=== PATIENT | male | born 1955 | race Caucasian/White ===

== ENCOUNTER 2020-03-30 08:05 | Outpatient (REF) | payer BC, SELFPAY | END 2020-03-30 08:06 | disposition home or self-care (01) | LOC: HO.BBR 08:05 | PROVIDERS: PCP Nurse Practitioner Family; Visit Provider Internal Medicine | DX: Z13.89 Encounter for screening for other disorder (principal) ==

== ENCOUNTER 2020-03-30 08:34 | Outpatient (REF) | payer SELFPAY ==
[2020-03-30 09:56] LABS: Cholesterol 169 mg/dL
[2020-03-30 10:16] LABS: SARS COV2 IgG Negative (Negative)
== END 2020-03-30 08:35 | disposition home or self-care (01) ==
LOC: HO.LNC 08:34
PROVIDERS: Visit Provider Pathology Anatomic Pathology & Clinical Pathology
DX: Z20.828 Contact with and (suspected) exposure to other viral communicable diseases (principal)
CPT/HCPCS: 82465; 86769

== ENCOUNTER 2020-05-17 07:54 | Outpatient (REF) | payer BC, SELFPAY ==
--- NOTE | 2020-05-17 | US_ITS ---
EXAMINATION: US ABDOMEN COMPLETE CLINICAL INFORMATION: Hereditary hemochromatosis. COMPARISON: Ultrasound abdomen 01/28/2018. X-ray negative soft tissue 03/02/2014. Ultrasound abdomen 02/02/2013. TECHNIQUE: Real-time imaging of the abdominal viscera. Exam is limited due to patient body habitus. FINDINGS: PANCREAS: Normal. ABDOMINAL AORTA: The proximal, mid, and distal segments are normal in caliber. INFERIOR VENA CAVA: Visualized portions are normal. LIVER: . The liver is normal in size. The liver contour is normal. Liver echotexture is slightly increased. No focal hepatic lesion. There is no intrahepatic biliary duct dilatation seen. GALLBLADDER: Normal. The gallbladder is physiologically distended without evidence of stones, sludge, polyps, wall thickening or pericholecystic fluid. COMMON BILE DUCT: Normal in caliber measuring 0.3 cm in diameter. RIGHT KIDNEY: Normal. No hydronephrosis. No renal calculi or focal parenchymal lesions. The kidney measures 11.1 cm in maximum dimension. LEFT KIDNEY: Normal. No hydronephrosis. No renal calculi or focal parenchymal lesions. The kidney measures 11.5 cm in maximum dimension. SPLEEN: Normal. The spleen measures 11.4 cm in maximum dimension. FREE FLUID: None. US/US abdomen complete IMPRESSION: Limited exam. Slightly echogenic liver. No focal liver lesion or evidence of cirrhosis seen.
[2020-05-17 09:31] LABS: Alanine Aminotransferase 27 U/L (0-40); Albumin Level 4.8 g/dL (3.5-5.0); Alkaline Phosphatase 81 U/L (39-117); Aspartate Amino Transferase 21 U/L (5-37); Bilirubin Direct 0.3 mg/dL (0.0-0.5); Bilirubin Total 0.8 mg/dL (0.0-1.0); Total Protein 7.5 g/dL (6.5-8.0)
[2020-05-18 11:32] LABS: Alpha Fetoprotein 4.3 ng/mL (<6.1)
== END 2020-05-17 07:55 | disposition home or self-care (01) ==
LOC: HO.US 07:54
PROVIDERS: PCP Nurse Practitioner Family; Visit Provider Internal Medicine
DX: E83.110 Hereditary hemochromatosis (principal)
CPT/HCPCS: 36415; 76700; 80076; 82105

== ENCOUNTER 2020-06-28 08:06 | Outpatient (REF) | payer BC, SELFPAY ==
[2020-06-28 11:40] LABS: Iron 52 mcg/dL (45-160); Percent Iron Saturation 18 % (15-50); Total Iron Binding Capacity 289 mcg/dL (228-428); Unsaturated Iron Binding 237 ug/dL
[2020-06-28 12:00] LABS: Ferritin 19 ng/mL (20-250)
== END 2020-06-28 08:07 | disposition home or self-care (01) ==
LOC: HO.BBR 08:06
PROVIDERS: Visit Provider Internal Medicine
DX: E83.110 Hereditary hemochromatosis (principal)
CPT/HCPCS: 36415; 82728; 83540

== ENCOUNTER 2021-01-30 13:03 | Outpatient (REF) | payer BC, SELFPAY ==
[2021-01-30 14:40] LABS: Iron 124 mcg/dL (45-160); Percent Iron Saturation 44 % (15-50); Total Iron Binding Capacity 285 mcg/dL (228-428); Unsaturated Iron Binding 161 ug/dL
[2021-01-30 15:22] LABS: Ferritin 44 ng/mL (20-250)
== END 2021-01-30 13:04 | disposition home or self-care (01) ==
LOC: HO.BBR 13:03
PROVIDERS: PCP Nurse Practitioner Family; Visit Provider Internal Medicine
DX: E83.110 Hereditary hemochromatosis (principal)
CPT/HCPCS: 36415; 82728; 83540

== ENCOUNTER 2021-04-11 07:52 | Outpatient (REF) | payer BC, SELFPAY ==
[2021-04-11 12:09] LABS: Alanine Aminotransferase 24 U/L (0-40); Albumin Level 4.5 g/dL (3.5-5.0); Alkaline Phosphatase 81 U/L (39-117); Anion Gap 11 (12-20); Aspartate Amino Transferase 21 U/L (5-37); Bilirubin Total 0.8 mg/dL (0.0-1.0); Blood Urea Nitrogen 23 mg/dL (9-16); Calcium 10.1 mg/dL (8.4-10.2); Carbon Dioxide 28 mmol/L (22-29); Chloride 107 mmol/L (96-108); Cholesterol 229 mg/dL; Estimated Glomerular Filt Rate > 60; Glucose Fasting 121 mg/dL (60-99); HDL Cholesterol 51 mg/dL; LDL Cholesterol Calculated 151 mg/dl; Potassium 4.8 mmol/L (3.3-5.1); Sodium 141 mmol/L (135-145); Total Protein 7.2 g/dL (6.5-8.0); Triglycerides 137 mg/dL
[2021-04-11 12:20] LABS: Prostate Specific Antigen Scr 1.35 ng/mL (<0.05-4.0); TSH reflex Free T4 0.97 uIU/mL (0.32-4.0)
== END 2021-04-11 07:53 | disposition home or self-care (01) ==
LOC: HO.HMGCLDS 07:52
PROVIDERS: PCP Nurse Practitioner Family; Visit Provider Nurse Practitioner Family
DX: Z00.00 Encounter for general adult medical examination without abnormal findings (principal); Z12.5 Encounter for screening for malignant neoplasm of prostate
CPT/HCPCS: 36415; 80053; 80061; 84153; 84443

== ENCOUNTER 2021-05-15 08:22 | Outpatient (REF) | payer BC, SELFPAY | END 2021-05-15 08:23 | disposition home or self-care (01) | LOC: HO.BBR 08:22 | PROVIDERS: Visit Provider Internal Medicine | DX: Z13.89 Encounter for screening for other disorder (principal) ==

== ENCOUNTER 2021-06-27 08:23 | Outpatient (REF) | payer BC, SELFPAY ==
[2021-06-27 11:43] LABS: Alanine Aminotransferase 30 U/L (0-40); Albumin Level 4.5 g/dL (3.5-5.0); Alkaline Phosphatase 84 U/L (39-117); Anion Gap 11 (12-20); Aspartate Amino Transferase 22 U/L (5-37); Bilirubin Total 0.9 mg/dL (0.0-1.0); Blood Urea Nitrogen 21 mg/dL (9-16); Calcium 10.1 mg/dL (8.4-10.2); Carbon Dioxide 29 mmol/L (22-29); Chloride 105 mmol/L (96-108); Cholesterol 165 mg/dL; Estimated Glomerular Filt Rate > 60; Glucose Fasting 105 mg/dL (60-99); HDL Cholesterol 48 mg/dL; LDL Cholesterol Calculated 95 mg/dl; Potassium 4.3 mmol/L (3.3-5.1); Sodium 141 mmol/L (135-145); Total Protein 7.2 g/dL (6.5-8.0); Triglycerides 111 mg/dL
== END 2021-06-27 08:24 | disposition home or self-care (01) ==
LOC: HO.HMGCLDS 08:23
PROVIDERS: Visit Provider Nurse Practitioner Family
DX: E78.5 Hyperlipidemia, unspecified (principal)
CPT/HCPCS: 36415; 80053; 80061

== ENCOUNTER 2021-08-21 08:04 | Outpatient (REF) | payer BC, SELFPAY ==
[2021-08-21 10:37] LABS: Iron 145 mcg/dL (45-160); Percent Iron Saturation 51 % (15-50); Total Iron Binding Capacity 284 mcg/dL (228-428); Unsaturated Iron Binding 139 ug/dL
[2021-08-21 10:58] LABS: Ferritin 37 ng/mL (20-250)
== END 2021-08-21 08:05 | disposition home or self-care (01) ==
LOC: HO.BBR 08:04
PROVIDERS: PCP Nurse Practitioner Family; Visit Provider Internal Medicine
DX: E83.110 Hereditary hemochromatosis (principal)
CPT/HCPCS: 36415; 82728; 83540

== ENCOUNTER 2021-10-16 14:26 | Outpatient (REF) | payer BC, MEDICARE, SELFPAY ==
--- NOTE | ~2021-10-16 | XR_ITS ---
EXAMINATION: XR RIBS, LEFT CLINICAL INFORMATION: COMPARISON: None TECHNIQUE: 3 views of the left ribs were obtained. FINDINGS: The cardiac and mediastinal contours are stable. The lung volumes are low. The lungs are clear. There are small bilateral pleural effusions. There is no pneumothorax. There are degenerative changes of the spine. There is question of an acute left anterior seventh rib fracture. XR/XR ribs LT min 3V w CXR1V IMPRESSION: Low lung volumes and small bilateral pleural effusions. Question left anterior seventh rib fracture.
== END 2021-10-16 14:27 | disposition home or self-care (01) ==
LOC: HO.HMGCX 14:26
PROVIDERS: PCP Nurse Practitioner Family; Visit Provider Nurse Practitioner Family
DX: R07.81 Pleurodynia (principal)
CPT/HCPCS: 71101

== ENCOUNTER 2021-10-22 12:11 | Outpatient (REF) | payer BC, SELFPAY ==
[2021-10-22 13:00] LABS: Influenza A PCR NEGATIVE (Negative); Influenza B PCR NEGATIVE (Negative); Resp Syncy Virus RNA Qual PCR NEGATIVE (Negative); SARS COV2 PCR INHOUSE NEGATIVE (Negative)
== END 2021-10-22 12:12 | disposition home or self-care (01) ==
LOC: HO.LNP 12:11
PROVIDERS: Visit Provider Family Medicine
DX: J02.9 Acute pharyngitis, unspecified (principal); Z20.822 Contact with and (suspected) exposure to COVID-19
CPT/HCPCS: 0241U

== ENCOUNTER 2022-01-07 08:04 | Outpatient (REF) | payer MEDICARE, BC, SELFPAY | END 2022-01-07 08:05 | disposition home or self-care (01) | LOC: HO.BBR 08:04 | PROVIDERS: Visit Provider Internal Medicine | DX: Z13.89 Encounter for screening for other disorder (principal) ==

== ENCOUNTER 2022-06-24 08:07 | Outpatient (REF) | payer BC, SELFPAY ==
[2022-06-24 10:01] LABS: Iron 85 mcg/dL (45-160); Percent Iron Saturation 37 % (15-50); Total Iron Binding Capacity 232 mcg/dL (228-428); Unsaturated Iron Binding 147 ug/dL
[2022-06-24 10:24] LABS: Ferritin 35 ng/mL (20-250)
== END 2022-06-24 08:08 | disposition home or self-care (01) ==
LOC: HO.BBR 08:07
PROVIDERS: Visit Provider Internal Medicine
DX: E83.110 Hereditary hemochromatosis (principal)
CPT/HCPCS: 36415; 82728; 83540

== ENCOUNTER 2022-07-04 07:17 | Outpatient (REF) | payer BC, SELFPAY ==
[2022-07-04 11:25] LABS: MANUAL DIFF FLAG NO
[2022-07-04 11:46] LABS: Appearance Urine Clear; Color Urine Yellow; Glucose Urine UA Negative (Negative); Leukocyte Esterase Urine Negative (Negative); Nitrite Urine Negative (Negative); Specific Gravity - Urine 1.025 (1.005-1.025); Urine Blood Negative (Negative); Urine Ketones Negative (Negative); Urine Protein Negative (Neg-Trace)
[2022-07-04 12:07] LABS: Basophils Absolute Auto 0.1 X10*3/uL (0.0-0.2); Basophils Percent Auto 0.8 % (0-2); Eosinophils Absolute Auto 0.3 X10*3/uL (0.0-0.4); Eosinophils Percent Auto 2.9 % (0-4); Hematocrit 44.7 % (42.0-52.0); Hemoglobin 15.1 g/dl (14.0-18.0); Imm Gran Abs Auto 0.04 X10*3/uL (0.00-0.03); Imm Gran Pct Auto 0.5 % (0.0-0.4); Lymphocytes Absolute Auto 1.8 X10*3/uL (1.2-4.9); Mean Corpuscular HGB Conc 33.8 g/dl (31.0-36.0); Mean Corpuscular Hemoglobin 30.1 pg (27.0-33.0); Mean Corpuscular Volume 89.2 fL (80.0-98.0); Mean Platelet Volume 11.6 fL (9.4-12.4); Monocytes Absolute Auto 0.6 X10*3/uL (0.1-1.2); Monocytes Percent Auto 6.9 % (2-11); Neutrophils Absolute Auto 5.9 x10*3/uL (2.0-8.3); Neutrophils Percent Auto 67.9 % (45-73); Platelet Count 242 X10*3/uL (160-400); Red Blood Count 5.01 X10*6/uL (4.60-5.80); Red Cell Distribution Width 13.1 % (11.0-16.0); White Blood Count 8.7 X10*3/uL (4.8-10.8)
[2022-07-04 12:24] LABS: Alanine Aminotransferase 29 U/L (0-40); Albumin Level 4.5 g/dL (3.5-5.0); Alkaline Phosphatase 81 U/L (39-117); Anion Gap 17 (12-20); Aspartate Amino Transferase 24 U/L (5-37); Bilirubin Total 1.3 mg/dL (0.0-1.0); Blood Urea Nitrogen 19 mg/dL (9-16); Calcium 9.7 mg/dL (8.4-10.2); Carbon Dioxide 25 mmol/L (22-29); Chloride 104 mmol/L (96-108); Cholesterol 159 mg/dL; Estimated Glomerular Filt Rate > 60; Glucose Fasting 99 mg/dL (60-99); HDL Cholesterol 50 mg/dL; LDL Cholesterol Calculated 90 mg/dl; Potassium 4.2 mmol/L (3.3-5.1); Sodium 142 mmol/L (135-145); Total Protein 6.9 g/dL (6.5-8.0); Triglycerides 98 mg/dL
[2022-07-04 12:32] LABS: TSH reflex Free T4 1.39 uIU/mL (0.32-4.0)
== END 2022-07-04 07:18 | disposition home or self-care (01) ==
LOC: HO.HMGCLDS 07:17
PROVIDERS: PCP Nurse Practitioner Family; Visit Provider Nurse Practitioner Family
DX: E78.5 Hyperlipidemia, unspecified (principal)
CPT/HCPCS: 36415; 80053; 80061; 81003; 84443; 85025

== ENCOUNTER 2022-07-08 11:27 | Outpatient (REF) | payer BC, SELFPAY ==
[2022-07-08 13:59] LABS: Appearance Urine Clear; Color Urine Yellow; Glucose Urine UA Negative (Negative); Leukocyte Esterase Urine Negative (Negative); Nitrite Urine Negative (Negative); PH 5.5 (5.0-9.0); Urine Blood Negative (Negative); Urine Ketones Negative (Negative); Urine Protein Negative (Neg-Trace)
[2022-07-08 14:47] LABS: Prostate Specific Antigen Scr 1.33 ng/mL (<0.05-4.0)
== END 2022-07-08 11:28 | disposition home or self-care (01) ==
LOC: HO.HMGCLDS 11:27
PROVIDERS: PCP Nurse Practitioner Family; Visit Provider Nurse Practitioner Family
DX: Z00.00 Encounter for general adult medical examination without abnormal findings (principal); Z12.5 Encounter for screening for malignant neoplasm of prostate
CPT/HCPCS: 36415; 81003; 84153

== ENCOUNTER 2022-07-30 08:20 | Outpatient (REF) | payer BC, SELFPAY ==
--- NOTE | ~2022-07-30 | US_ITS ---
EXAMINATION: US COMPLETE ABDOMEN WITH LIVER ELASTOGRAPHY CLINICAL INFORMATION: Hereditary hemochromatosis COMPARISON: Previous abdominal ultrasound most recent April 2020 TECHNIQUE: Real-time imaging of the abdominal viscera. Noninvasive ultrasound liver fibrosis assessment is performed using [employer] ElastPQ point quantification shear wave elastography (2D-SWE) with a C5-2 MHz transducer. Multiple elastography samples are obtained. FINDINGS: PANCREAS: Normal. ABDOMINAL AORTA: The proximal, middle, and distal aortic segments are normal in caliber. INFERIOR VENA CAVA: Visualized portions are normal. LIVER: Normal. The liver demonstrates normal size, contour and echogenicity. No focal lesion or intrahepatic biliary duct dilatation. The right lobe measures 12 cm in length. The left lobe measures 9 cm in length. Portal flow is normal/hepatopedal Shear wave liver elastography median stiffness is 1.7 m/s (reference: normal median stiffness is 1.3 m/s or less). IQR/median stiffness to assess sampling precision is 0.1 (reference: good quality data set is IQR/median stiffness of 0.15 or less). GALLBLADDER: Normal. The gallbladder is physiologically distended without evidence of stones, sludge, polyps, wall thickening or pericholecystic fluid. COMMON BILE DUCT: Normal in caliber measuring 0.3 cm in diameter. RIGHT KIDNEY: Normal. No hydronephrosis. No renal calculi or focal parenchymal lesions. The kidney measures 10.6 cm in maximum dimension. LEFT KIDNEY: Normal. No hydronephrosis. No renal calculi or focal parenchymal lesions. The kidney measures 11 cm in maximum dimension. SPLEEN: Normal. The spleen measures 11 cm in maximum dimension. FREE FLUID: None. US/US abdomen comp w elastography IMPRESSION: 1. Impression: Unremarkable exam. 2. Liver elastography: Adequate liver sampling. In the absence of other known clinical signs, rules out compensated advanced chronic liver disease. REFERENCE: Society of Radiologists in Ultrasound Liver Stiffness Thresholds (2020): LIVER STIFFNESS THRESHOLDS: *Liver Stiffness equal or less than 1.3 m/s: High probability of being normal. *Liver Stiffness less than 1.7 m/s: In the absence of other known clinical signs, rules out compensated advanced chronic liver disease. *Liver Stiffness 1.7-2.1 m/s: Suggestive of compensated advanced chronic liver disease but need further test for confirmation. *Liver Stiffness over 2.1 m/s: Rules in compensated advanced chronic liver disease. *Liver Stiffness over 2.4 m/s: Suggestive of clinically significant portal hypertension. QUALITY OF DATA SET: *IQR/Median value equal or less than 0.15 implies a quality data set. *IQR/Median value over 0.15 implies a poor quality data set. SIGNIFICANT CHANGE FROM PRIOR EXAM: Significant change if liver stiffness measurement is 10% or greater from prior exam. OTHER CONSIDERATIONS: The stage of liver fibrosis may be overestimated in the setting of acute hepatitis, liver inflammation, elevated liver function tests, hepatic vascular congestion, obstructive cholestasis, non-fasting state, and infiltrative diseases such as amyloidosis and lymphoma. In some patients with NAFLD, the liver stiffness thresholds for compensated advanced chronic liver disease may be lower. In causes other than viral hepatitis and NAFLD, liver stiffness thresholds are not well established.
[2022-07-30 10:34] LABS: Alanine Aminotransferase 25 U/L (0-40); Albumin Level 4.6 g/dL (3.5-5.0); Alkaline Phosphatase 81 U/L (39-117); Aspartate Amino Transferase 21 U/L (5-37); Bilirubin Direct 0.4 mg/dL (0.0-0.5); Bilirubin Total 1.3 mg/dL (0.0-1.0); Total Protein 7.1 g/dL (6.5-8.0)
[2022-08-01 13:37] LABS: Alpha Fetoprotein 4.2 ng/mL (<6.1)
[2022-08-07 00:38] LABS: FIB-ALT 23 U/L (9-46); FIB-Alpha-2-Macroglobulin 133 mg/dL (106-279); FIB-Apolipoprotein A1 167 mg/dL (94-176); FIB-GGT 40 U/L (3-70); FIB-Haptoglobin 144 mg/dL (43-212); FIB-Total Bilirubin 0.8 mg/dL (0.2-1.2); Liver Fibrosis Score 0.19; Liver Fibrosis Stage F0; Nec Inflam Act Grade A0; Nec Inflam Act Score 0.09
== END 2022-07-30 08:21 | disposition home or self-care (01) ==
LOC: HO.US 08:20
PROVIDERS: PCP Nurse Practitioner Family; Visit Provider Internal Medicine
DX: E83.110 Hereditary hemochromatosis (principal)
CPT/HCPCS: 36415; 76705; 76981; 80076; 81596; 82105

== ENCOUNTER 2022-11-18 09:02 | Outpatient (REF) | payer OTHER, MEDICARE, SELFPAY | END 2022-11-18 09:03 | disposition home or self-care (01) | LOC: HO.BBR 09:02 | PROVIDERS: PCP Nurse Practitioner Family; Visit Provider Internal Medicine | DX: Z13.89 Encounter for screening for other disorder (principal) ==

== ENCOUNTER 2022-12-27 07:56 | Day surgery (SDC) | payer OTHER, MEDICARE, SELFPAY ==
--- NOTE | 2022-12-25 12:39 | HO.ANESPROP2 ---
Documented by User: Shirin Bowman NP 12/25/22 12:41 HPI - Anesthesia Eval Consult details Narrative: 67yo M for Colonoscopy Hemochromatosis. Last therapeutic phleb 11/18/22 PMF Active Problems Active Problems: All Active Problems (Updated 07/08/22 @ 11:08 by Adrian Dumas [facility]) Cerumen debris on tympanic membrane of right ear (Acute) Ear discomfort (Acute) Sore throat (Acute) Dyslipidemia (Acute) Onychomycosis (Acute) Screening PSA (prostate specific antigen) (Acute) Physical exam (Acute) Skin lesion (Acute) Past Medical History Medical History Dyslipidemia Hemochromatosis HTN (hypertension) Hx of Chris's palsy Squamous cell carcinoma Family History Family History Father Cancer Mother HTN (hypertension) Sister No problems noted. Sister No problems noted. Daughter No problems noted. Daughter No problems noted. Daughter No problems noted. 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 Current occupational exposures/hazards: No Cognitive needs: No Hearing needs: No Vision needs: No Meds Allergies Allergy/AdvReac Type Severity Reaction Status Date / Time No Known Allergies Allergy Verified 12/27/22 08:08 Home Medications Medication Instructions Recorded Confirmed Last Taken Type Viagra 12/25/22 Unknown History Exam Exam Date and Time: December 25, 2022 1239 Assessment and Plan Assessment Anesthesia Assessment: Chart Reviewed Documented by User: Yesy Salvador MD 12/27/22 08:58 PMF Past Medical History Medical History Dyslipidemia Hemochromatosis HTN (hypertension) Hx of Chris's palsy Squamous cell carcinoma Family History Family History Father Cancer Mother HTN (hypertension) Sister No problems noted. Sister No problems noted. Daughter No problems noted. Daughter No problems noted. Daughter No problems noted. 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 Current occupational exposures/hazards: No Cognitive needs: No Hearing needs: No Vision needs: No Meds Allergies Allergy/AdvReac Type Severity Reaction Status Date / Time No Known Allergies Allergy Verified 12/27/22 08:08 Home Medications Medication Instructions Recorded Confirmed Last Taken Type Viagra 12/25/22 Unknown History Exam Airway Mallampati Class: IV TM Dist: >3cm Neck ROM: Full Heart: rrr Lungs: cta Assessment and Plan Final Anesthetic Review Family History of Problems with Anesthesia: No History of Problems with Anesthesia: No NPO: Yes ASA Class: II Final Preanesthetic Review: No Changes in Pt Med Stat, Meds/Allgs Chart Reviewed and Consent Obtained/Reviewed Patient Risk: Intermediate Procedure Risk: Intermediate Anesthetic Plan Anesthetic Plan: MAC: Disposition: Standard PACU
[2022-12-27 06:00] VITALS: BMI 32.0
[2022-12-27] MEDS: Lactated Ringers 1,000 ML 100 ML IVCONT (08:12)
[2022-12-27 08:21] VITALS: BP 126/80; PULSE 70; RESP 18; TEMP 36.5; O2SAT 96
[2022-12-27 09:51] VITALS: BP 93/56; PULSE 63; RESP 16; TEMP 36.5; O2SAT 96
--- NOTE | 2022-12-27 09:53 | P.BOP_ITS ---
Brief Operative Note Date of Service: 12/27/22 Pre-op diagnosis: Screening Post-op diagnosis: other (Diverticulosis) Procedure: Colonoscopy to the cecum Surgeon: Spencer Hernandez Anesthesia: MAC Was an Logistics Management Specialist used for this Procedure?: No Estimated blood loss (mL): 0 Pathology: none sent Condition: stable Disposition: PACU
[2022-12-27 10:07] VITALS: BP 102/73; PULSE 66; RESP 16; TEMP 36.3; O2SAT 97
[2022-12-27 10:21] VITALS: BP 114/72; PULSE 60; RESP 16; TEMP 36.3; O2SAT 98
--- NOTE | 2022-12-27 10:38 | OP_ITS ---
DATE OF SERVICE: 12/27/2022 SURGEON: Spencer Hernandez MD INDICATIONS: The patient presents for evaluation of personal history of tubular adenoma of the colon and colorectal cancer screening. Full consent has been obtained from him for this, including risks of bleeding and perforation. PREOPERATIVE DIAGNOSIS: Colorectal cancer screening and personal history of tubular adenoma of the colon. POSTOPERATIVE DIAGNOSIS: PROCEDURE PERFORMED: Colonoscopy to the cecum. ESTIMATED BLOOD LOSS: COMPLICATIONS: ANESTHESIA: Monitored anesthesia care. ASSISTANTS: SPECIMENS: POSTOPERATIVE DIAGNOSES: Colorectal cancer screening and personal history of tubular adenoma of the colon, mild sigmoid diverticulosis, small internal hemorrhoids. DESCRIPTION OF PROCEDURE: The patient was placed in the left lateral decubitus position. The digital rectal exam revealed no abnormalities. The Olympus video pediatric colonoscope was entered into the rectum and advanced to the cecum with the assistance of abdominal wall pressure. Once in the cecum, I did identify normal-appearing cecal pouch with appendiceal orifice and a normal-appearing ileocecal valve. The entire cecum and ileocecal valve appeared normal. The scope was slowly withdrawn assessing all mucosal surfaces carefully. Preparation was excellent. I did not visualize any sign of polyps, colitis, nor angiodysplasia. There was a mild amount of sigmoid diverticulosis. In the rectum, scope was retroflexed visualizing internal hemorrhoids, but no other pathology. The rectal mucosa appeared normal. The scope was straightened and withdrawn from the patient. He tolerated the procedure well and was returned to recovery area in stable condition. IMPRESSION: 1. Sigmoid diverticulosis. 2. Internal hemorrhoids. PLAN: Given his previous history of tubular adenomas, I would recommend a followup coloscopy in 5 years. I have advised him to see me again in spring for followup in regard to the underlying hemochromatosis. He will continue his current phlebotomy schedule of every 3 months. This has been discussed with his . MD ISABELA Hammer/BERNIE / [phone]
== END 2022-12-27 10:46 | disposition home or self-care (01) ==
PROVIDERS: PCP Nurse Practitioner Family; Visit Provider Internal Medicine
PROC: 0DJD8ZZ Inspection of Lower Intestinal Tract, Via Natural or Artificial Opening Endoscopic (ICD-10-PCS; CPT 45378; principal; 2022-12-27 09:00)
DX: Z12.11 Encounter for screening for malignant neoplasm of colon (principal); K57.30 Diverticulosis of large intestine without perforation or abscess without bleeding; K64.8 Other hemorrhoids; Z86.010 Personal history of colon polyps; E83.110 Hereditary hemochromatosis; I10 Essential (primary) hypertension; E78.5 Hyperlipidemia, unspecified; Z79.899 Other long term (current) drug therapy
CPT/HCPCS: 45378

== ENCOUNTER 2023-04-15 09:02 | Outpatient (REF) | payer OTHER, SELFPAY ==
[2023-04-15 11:25] LABS: Iron 153 mcg/dL (45-160); Percent Iron Saturation 63 % (15-50); Total Iron Binding Capacity 244 mcg/dL (228-428); Unsaturated Iron Binding 91 ug/dL
[2023-04-15 11:40] LABS: Ferritin 53 ng/mL (20-250)
== END 2023-04-15 09:03 | disposition home or self-care (01) ==
LOC: HO.BBR 09:02
PROVIDERS: PCP Nurse Practitioner Family; Visit Provider Internal Medicine
DX: E83.110 Hereditary hemochromatosis (principal)
CPT/HCPCS: 36415; 82728; 83540

== ENCOUNTER 2023-07-09 06:18 | Outpatient (REF) | payer OTHER, SELFPAY ==
[2023-07-09 11:33] LABS: MANUAL DIFF FLAG NO
[2023-07-09 11:46] LABS: Basophils Absolute Auto 0.1 X10*3/uL (0.0-0.2); Basophils Percent Auto 0.8 % (0-2); Eosinophils Absolute Auto 0.2 X10*3/uL (0.0-0.4); Eosinophils Percent Auto 2.8 % (0-4); Hematocrit 47.8 % (42.0-52.0); Hemoglobin 16.2 g/dl (14.0-18.0); Imm Gran Abs Auto 0.04 X10*3/uL (0.00-0.03); Imm Gran Pct Auto 0.5 % (0.0-0.4); Lymphocytes Absolute Auto 2.3 X10*3/uL (1.2-4.9); Mean Corpuscular HGB Conc 33.9 g/dl (31.0-36.0); Mean Corpuscular Hemoglobin 29.8 pg (27.0-33.0); Mean Corpuscular Volume 87.9 fL (80.0-98.0); Monocytes Absolute Auto 0.7 X10*3/uL (0.1-1.2); Monocytes Percent Auto 7.9 % (2-11); Neutrophils Absolute Auto 5.2 x10*3/uL (2.0-8.3); Platelet Count 191 X10*3/uL (160-400); Red Blood Count 5.44 X10*6/uL (4.60-5.80); Red Cell Distribution Width 12.7 % (11.0-16.0); White Blood Count 8.5 X10*3/uL (4.8-10.8)
[2023-07-09 12:21] LABS: Prostate Specific Antigen Scr 1.11 ng/mL (<0.05-4.0)
[2023-07-09 12:30] LABS: Alanine Aminotransferase 22 U/L (0-40); Albumin Level 4.3 g/dL (3.5-5.0); Alkaline Phosphatase 80 U/L (39-117); Anion Gap 11 (12-20); Aspartate Amino Transferase 22 U/L (5-37); Blood Urea Nitrogen 21 mg/dL (9-16); Calcium 9.7 mg/dL (8.4-10.2); Carbon Dioxide 29 mmol/L (22-29); Chloride 104 mmol/L (96-108); Cholesterol 168 mg/dL (<200); Estimated Glomerular Filt Rate > 60; Glucose Fasting 100 mg/dL (60-99); HDL Cholesterol 44 mg/dL (>40); LDL Cholesterol Calculated 96 mg/dL (<100); Potassium 3.8 mmol/L (3.3-5.1); Sodium 140 mmol/L (135-145); TSH reflex Free T4 1.69 uIU/mL (0.32-4.0); Total Protein 7.2 g/dL (6.5-8.0); Triglycerides 144 mg/dL (<150)
== END 2023-07-09 06:19 | disposition home or self-care (01) ==
LOC: HO.HMGCLDS 06:18
PROVIDERS: PCP Nurse Practitioner Family; Visit Provider Nurse Practitioner Family
DX: Z00.00 Encounter for general adult medical examination without abnormal findings (principal); Z12.5 Encounter for screening for malignant neoplasm of prostate; Z13.6 Encounter for screening for cardiovascular disorders
CPT/HCPCS: 36415; 80053; 80061; 84153; 84443; 85025

== ENCOUNTER 2023-07-14 10:22 | Outpatient (AMB) | payer OTHER, SELFPAY ==
[2023-07-14 10:34] VITALS: BP 136/60; PULSE 60; O2SAT 98; BMI 33.2
--- NOTE | 2023-07-14 10:34 | A.OFFPC_ITS ---
Vital Signs 07/14/23 10:34 Height 5 ft 8.75 in Weight 223 lb BMI 33.2 BP 136/60 Blood Pressure Location Lt brachial Position Sitting Pulse 60 Pulse Source Pulse Oximeter Pulse Oximetry (%) 98 Intake Visit Reasons: annual PE Intake Note: pt is here for annual exam, last colonoscopy 01/2023 Polymer Specialist Required: No Accompanied by: Self / Same As Patient Allergies No Known Allergies Allergy (Verified 07/14/23 11:42) Medication List - Last Reconciled 07/14/23 by KM Chance hydrochlorothiazide 25 mg PO QAM 90 days lisinopril 10 mg PO DAILY simvastatin 80 mg PO BEDTIME [Viagra ] Tobacco use date assessed: 07/14/23 Fall risk assessment: No Falls in past year Last assessed Fall Risk: 07/14/23 Dental Screening Dental Screen Date: 07/14/23 Did you have a dental visit in the last 12 months?: Yes Did you have a dental problem in the last 6 months where you did not have access to dental care?: No Was dental information given to patient?: Patient has dentist HPI annual PE HPI Details Pt is here for a PE. Labs were already performed. Colon screen is up to date. PSA is up to date. Denies dribbling with urination, weak stream, and frequent nocturia. Pt sees a central office associate. Pt sees GI (hemochromatosis), colon screens through them as well [facility] Medical History Hx of Chris's palsy HTN (hypertension) Dyslipidemia Hemochromatosis Squamous cell carcinoma Surgical History Hx of colonoscopy (~2018) History of hernia surgery History of vasectomy Family History Father Cancer Mother HTN (hypertension) Sister No problems noted. Sister No problems noted. Daughter No problems noted. Daughter No problems noted. Daughter No problems noted. Social History Housing: House Alcohol intake: current Alcohol intake frequency: a few times a month Patient Tobacco Use Status: Never used Tobacco e-Cigarette/Vaping Use: Never Used Second Hand Smoke Exposure: No service: No Current occupational status: employed Current occupation: [employer] Current occupational exposures/hazards: No Cognitive needs: No Hearing needs: No Vision needs: No Questionnaire PHQ-9 Over the last 2 weeks, how often have you been bothered by any of the following problems? 1. Little interest or pleasure in doing things: not at all 2. Feeling down, depressed, or hopeless: not at all 3. Trouble falling or staying asleep, or sleeping too much: not at all 4. Feeling tired or having little energy: not at all 5. Poor appetite or overeating: not at all 6. Feeling bad about yourself - or that you are a failure or have let yourself or your family down: not at all 7. Trouble concentrating on things, such as reading the newspaper or watching television: not at all 8. Moving or speaking so slowly that other people could have noticed. Or the opposite - being so fidgety or restless that you have been moving around a lot more than usual: not at all 9. Thoughts that you would be better off or of hurting yourself in some way: not at all Total score: 0 Depression Screening Interpretation: Negative Depression Screening Done: Yes 59092 - PHQ-9 Billing: Yes Source: Developed by Drs. Spencer Mejias, Noy Charles, Dru Willis and colleagues, with an educational ronald from [employer]. Thrive Questionnaire Date Thrive assessed: 07/14/23 I am a: Patient What is your living situation today?: I have a steady place to live Within the past 12 months, did the food you bought not last and you didn't have the money to get more?: Never true Within the past 12 months, did you worry whether your food would run out before you got money to buy more?: Never true Do you have trouble paying for medicines?: No Do you have trouble getting transportation to medical appointments?: No Do you have trouble paying your heating and electricity bill?: No Do you have trouble taking care of your child, family member or friend?: No Do you have trouble with day-to-day activities such as bathing, preparing meals, shopping, managing finances, etc.?: No Are you currently unemployed and looking for a job?: No Are you interested in more education?: No Please select the resources that you would like help with: None Currently or been in a relationship where the following occur: no concerns reported THRIVE Score: 0 ANTHONY-7 AMB Questionnaire ANTOHNY-7 Date ANTHONY - 7 assessed: 07/14/23 Feeling nervous, anxious, or on edge: 0 = Not at all Not being able to stop or control worryin = Not at all Worrying too much about different things: 0 = Not at all Trouble relaxin = Not at all Being so restless that it is hard to sit still: 0 = Not at all Becoming easily annoyed or irritable: 0 = Not at all Feeling afraid as if something awful might happen: 0 = Not at all Total ANTHONY-7 score (0-4 normal; 5-9 mild; 10-14 moderate; 15-21 severe): 0 Source: Developed by Drs. Spencer Mejias, Noy Charles, Dru Willis and colleagues, with an educational ronald from [employer]. ANTHONY-7 Assessment Billing ANTHONY-7 Assessment Tool: ANTHONY-7 Assessment 11081 Review of Systems Const Denies chills and Denies fever(s) Eyes Denies blurry vision ENT Denies vertigo, Denies dizziness and Denies sore throat Card Denies chest pain at rest, Denies chest pain with activity, Denies diaphoresis, Denies dyspnea and Denies dyspnea on exertion Resp Denies cough, Denies dyspnea, Denies dyspnea on exertion and Denies wheezing GI Denies abdominal pain, Denies melena, Denies hematochezia, Denies constipation, Denies diarrhea and Denies loose stools Denies hematuria Musc Denies numbness and Denies tingling Skin/Breast Denies lesions Neuro Denies vertigo, Denies dizziness, Denies numbness and Denies tingling Psych Denies anxiety, Denies depression, Denies homicidal ideation, Denies suicidal ideation and Denies other (substance abuse) Aller/Immun Denies wheezing Physical exam (Primary Care) Vital Signs: Last Vital Signs Pulse 60 07/14/23 10:34 BP 136/60 07/14/23 10:34 Pulse Ox 98 07/14/23 10:34 BMI result Body Mass Index 33.2 Tobacco/Smoking Status: Tobacco use Status Tobacco use date assessed 07/14/23 07/14/23 10:35 Patient Tobacco Use Status Never used Tobacco 07/14/23 10:35 e-Cigarette/Vaping Use Never Used 07/14/23 10:35 PHQ-9: PHQ-9 Score PHQ-9: Total score 0 07/14/23 10:53 Depression Screening Interpretation: Negative Thrive Assessment: Date of Thrive Assessment Date Thrive assessed 07/14/23 07/14/23 10:53 Currently or been in a relationship where the following occur: no concerns reported Const General: cooperative Nutritional Appearance: obese Orientation/consciousness: patient oriented x3 HENMT Head: Yes normal to inspection, Yes normocephalic and Yes atraumatic Ears: TM's normal bilaterally Eyes General: appearance normal, both eyes and all related structures Alignment and Position: alignment normal and position normal Neck Neck: Yes normal visual inspection and Yes no lymphadenopathy Thyroid: Thyroid normal Resp Effort & Inspection: normal respiratory effort Auscultation: clear to auscultation bilaterally Cardio Rate: regular rate Rhythm: regular rhythm Heart sounds: S1 normal heart sound present, S2 normal heart sound present and no murmurs GI Palpation (GI): Soft to palpation and nontender Auscultation: normal bowel sounds Male General Exam: Yes normal external exam Penis: normal penis Scrotum: scrotum normal, testes descended bilaterally and no inguinal hernias Testes: no testicular mass Skin Rashes: no rashes Neuro General: patient oriented x3, moves all extremities, no focal motor deficits and deep tendon reflexes 2+ bilaterally Romberg Test: Negative Psych Appearance: grossly normal Mental Status: mental status grossly normal Speech and movement: Normal speech and movement present Affect: normal affect Attitude: cooperative Thought process: Normal thought process present Thought content: Normal thought content present Insight: Good insight present (Psych) Judgement: Good judgement present (Psych) Assessment and Plan Assessment & Plan (1) Physical exam: Code(s): Z00.00 - Encounter for general adult medical examination without abnormal findings Plan: Labs already performed Plan The patient agreed to the use of a center medical and lab director for this encounter. Scribed for KM Bangura by raúl Blair scribe, on 07/14/2023 at 10:55 EST. Medications: New sildenafil administer 30 minutes to 4 hours before activity 50 mg PO DAILY PRN 10 tabs 0RF sexual activity Coding Level of Care Code Est Pt Prev Care >65y(52793) Diagnoses Physical exam Z00.00 Additional Codes ANTHONY-7 Assessment Billing - ANTHONY-7 Assessment Tool: ANTHONY-7 Assessment 87062 ([id number])
== END 2023-07-14 11:16 | disposition home or self-care (01) ==
PROVIDERS: Visit Provider Nurse Practitioner Family
DX: Z00.00 Encounter for general adult medical examination without abnormal findings (principal)
CPT/HCPCS: 99397

== ENCOUNTER 2023-07-28 09:03 | Outpatient (REF) | payer OTHER, MEDICARE, SELFPAY | END 2023-07-28 09:04 | disposition home or self-care (01) | LOC: HO.BBR 09:03 | PROVIDERS: PCP Nurse Practitioner Family; Visit Provider Internal Medicine | DX: Z13.89 Encounter for screening for other disorder (principal) ==

== ENCOUNTER 2023-10-08 07:50 | Outpatient (REF) | payer OTHER, SELFPAY ==
--- NOTE | ~2023-10-08 | US_ITS ---
EXAMINATION: US COMPLETE ABDOMEN WITH LIVER ELASTOGRAPHY CLINICAL INFORMATION: Hereditary hemochromatosis. COMPARISON: None available. TECHNIQUE: Real-time imaging of the abdominal viscera. Noninvasive ultrasound liver fibrosis assessment is performed using [employer] ElastPQ point quantification shear wave elastography (2D-SWE) with a C5-2 MHz transducer. Multiple elastography samples are obtained. FINDINGS: PANCREAS: Normal. The visualized pancreatic head and body are normal in appearance. The remainder of the pancreas is obscured from visualization by the overlying bowel gas. ABDOMINAL AORTA: The proximal, middle, and distal aortic segments are normal in caliber. INFERIOR VENA CAVA: Visualized portions are normal. LIVER: The liver demonstrates normal size, and contour but with increased echogenicity. No focal lesion or intrahepatic biliary duct dilatation. The right lobe measures 13.7 cm in length. The left lobe measures 10.9 cm in length. Portal flow is towards the liver (hepatopetal). Shear wave liver elastography median stiffness is 1.62 m/s (reference: normal median stiffness is 1.3 m/s or less). At the time of the prior study, this value was 1.7 on the Epiq machine, which is equivalent. IQR/median stiffness to assess sampling precision is 0.14 (reference: good quality data set is IQR/median stiffness of 0.15 or less). GALLBLADDER: There is some comet-tail artifact suggesting adenomyomatosis. The gallbladder is physiologically distended without evidence of stones, sludge, polyps or pericholecystic fluid. COMMON BILE DUCT: Normal in caliber measuring 0.4 cm in diameter. RIGHT KIDNEY: Normal. No hydronephrosis. No renal calculi or focal parenchymal lesions. The kidney measures 11.3 cm in maximum dimension. LEFT KIDNEY: Normal. No hydronephrosis. No renal calculi or focal parenchymal lesions. The kidney measures 11.2 cm in maximum dimension. SPLEEN: Normal. The spleen measures 11.4 cm in maximum dimension. FREE FLUID: None. US/US abdomen comp w elastography IMPRESSION: 1. Echogenic liver consistent with hemochromatosis. 2. Liver elastography: Measurements are suggestive of compensated advanced chronic liver disease but need further test for confirmation. Liver stiffness measurement is without significant change from prior exam (change under 10%). REFERENCE: Society of Radiologists in Ultrasound Liver Stiffness Thresholds (2020): LIVER STIFFNESS THRESHOLDS: *Liver Stiffness equal or less than 1.3 m/s: High probability of being normal. *Liver Stiffness less than 1.7 m/s: In the absence of other known clinical signs, rules out compensated advanced chronic liver disease. *Liver Stiffness 1.7-2.1 m/s: Suggestive of compensated advanced chronic liver disease but need further test for confirmation. *Liver Stiffness over 2.1 m/s: Rules in compensated advanced chronic liver disease. *Liver Stiffness over 2.4 m/s: Suggestive of clinically significant portal hypertension. QUALITY OF DATA SET: *IQR/Median value equal or less than 0.15 implies a quality data set. *IQR/Median value over 0.15 implies a poor quality data set. SIGNIFICANT CHANGE FROM PRIOR EXAM: Significant change if liver stiffness measurement is 10% or greater from prior exam. OTHER CONSIDERATIONS: The stage of liver fibrosis may be overestimated in the setting of acute hepatitis, liver inflammation, elevated liver function tests, hepatic vascular congestion, obstructive cholestasis, non-fasting state, and infiltrative diseases such as amyloidosis and lymphoma. In some patients with NAFLD, the liver stiffness thresholds for compensated advanced chronic liver disease may be lower. In causes other than viral hepatitis and NAFLD, liver stiffness thresholds are not well established.
== END 2023-10-08 07:51 | disposition home or self-care (01) ==
LOC: HO.US 07:50
PROVIDERS: PCP Nurse Practitioner Family; Visit Provider Internal Medicine
DX: E83.110 Hereditary hemochromatosis (principal)
CPT/HCPCS: 76700; 76981

== ENCOUNTER 2023-10-27 09:12 | Outpatient (REF) | payer OTHER, SELFPAY ==
[2023-10-27 10:58] LABS: Iron 139 mcg/dL (45-160); Percent Iron Saturation 52 % (15-50); Total Iron Binding Capacity 266 mcg/dL (228-428); Unsaturated Iron Binding 127 ug/dL
[2023-10-27 11:19] LABS: Ferritin 28 ng/mL (20-250)
== END 2023-10-27 09:13 | disposition home or self-care (01) ==
LOC: HO.BBR 09:12
PROVIDERS: PCP Nurse Practitioner Family; Visit Provider Internal Medicine
DX: E83.110 Hereditary hemochromatosis (principal)
CPT/HCPCS: 36415; 82728; 83540

== ENCOUNTER 2023-11-13 08:04 | Outpatient (REF) | payer OTHER, SELFPAY ==
[2023-11-18 12:47] LABS: Alpha Fetoprotein 4.1 ng/mL (<6.1)
[2023-11-22 02:23] LABS: FIB-ALT 22 U/L (9-46); FIB-Alpha-2-Macroglobulin 116 mg/dL (106-279); FIB-Apolipoprotein A1 151 mg/dL (94-176); FIB-GGT 42 U/L (3-70); FIB-Haptoglobin 143 mg/dL (43-212); FIB-Total Bilirubin 0.5 mg/dL (0.2-1.2); Liver Fibrosis Score 0.14; Liver Fibrosis Stage F0; Nec Inflam Act Grade A0; Nec Inflam Act Score 0.07
== END 2023-11-13 08:05 | disposition home or self-care (01) ==
LOC: HO.HMGCLDS 08:04
PROVIDERS: PCP Nurse Practitioner Family; Visit Provider Internal Medicine
DX: E83.110 Hereditary hemochromatosis (principal)
CPT/HCPCS: 36415; 81596; 82105

== ENCOUNTER 2024-01-19 09:23 | Outpatient (AMB) | payer OTHER, SELFPAY ==
--- NOTE | 2024-01-19 09:28 | A.OFFPC_ITS ---
Vital Signs 01/19/24 09:33 Height 5 ft 8.75 in Weight 222 lb 4 oz BMI 33.1 BP 138/80 Blood Pressure Location Rt brachial Position Sitting Pulse 61 Pulse Source Pulse Oximeter Pulse Oximetry (%) 98 Oxygen Delivery Method Room Air Intake Visit Reasons: 6 mon f.u Intake Note: pt is here for 6 month folllow up Stoner Hand Required: No Accompanied by: Self / Same As Patient Allergies No Known Allergies Allergy (Verified 01/19/24 10:04) Medication List - Last Reconciled 01/19/24 by KM Chance hydrochlorothiazide 25 mg PO QAM 90 days lisinopril 10 mg PO DAILY sildenafil 50 mg PO DAILY PRN simvastatin 80 mg PO BEDTIME Tobacco use date assessed: 07/14/23 Fall risk assessment: No Falls in past year Last assessed Fall Risk: 01/19/24 Dental Screening Dental Screen Date: 07/14/23 HPI 6 mon f.u HPI Details HTN: Blood pressure is stable, managed with hydrochlorothiazide 25mg and lisinopril 10mg. Will have pt monitor his BP at home and record readings. Will order labs. Denies chest pain, shortness of breath, headache, dizziness, and blurred vision. [facility] Medical History Hx of Chris's palsy HTN (hypertension) Dyslipidemia Hemochromatosis Squamous cell carcinoma Surgical History Hx of colonoscopy (~2018) History of hernia surgery History of vasectomy Family History Father Cancer Mother HTN (hypertension) Sister No problems noted. Sister No problems noted. Daughter No problems noted. Daughter No problems noted. Daughter No problems noted. Social History Housing: House Alcohol intake: current Alcohol intake frequency: a few times a month Patient Tobacco Use Status: Never used Tobacco e-Cigarette/Vaping Use: Never Used Second Hand Smoke Exposure: No service: No Current occupational status: employed Current occupation: [employer] Current occupational exposures/hazards: No Cognitive needs: No Hearing needs: No Vision needs: No Questionnaire Thrive Questionnaire Date Thrive assessed: 01/16/24 I am a: Patient What is your living situation today?: I have a steady place to live Within the past 12 months, did the food you bought not last and you didn't have the money to get more?: Never true Within the past 12 months, did you worry whether your food would run out before you got money to buy more?: Never true Do you have trouble paying for medicines?: No Do you have trouble getting transportation to medical appointments?: No Do you have trouble paying your heating and electricity bill?: No Do you have trouble taking care of your child, family member or friend?: No Do you have trouble with day-to-day activities such as bathing, preparing meals, shopping, managing finances, etc.?: No Are you currently unemployed and looking for a job?: No Are you interested in more education?: No Please select the resources that you would like help with: None Currently or been in a relationship where the following occur: No concerns reported THRIVE Score: 0 AUDIT C Alcohol Use Questionnaire (AUDIT-C) 1. How often do you have a drink containing alcohol?: 2-3 times a week 2. How many drinks containing alcohol do you have on a typical day when you are drinking?: 1 or 2 3. How often do you have six or more drinks on one occasion?: Never Total Score: 3 Score Reviewed/Action Taken: Yes ANTHONY-7 AMB Questionnaire ANTHONY-7 Date ANTHONY - 7 assessed: 01/19/24 Feeling nervous, anxious, or on edge: 0 = Not at all Not being able to stop or control worryin = Not at all Worrying too much about different things: 0 = Not at all Trouble relaxin = Not at all Being so restless that it is hard to sit still: 0 = Not at all Becoming easily annoyed or irritable: 0 = Not at all Feeling afraid as if something awful might happen: 0 = Not at all Total ANTHONY-7 score (0-4 normal; 5-9 mild; 10-14 moderate; 15-21 severe): 0 Source: Developed by Drs. Spencer Mejias, Noy Charles, Dru Willis and colleagues, with an educational ronald from [employer]. ANTHONY-7 Assessment Billing ANTHONY-7 Assessment Tool: ANTHONY-7 Assessment 75762 Review of Systems Const Reports as per HPI Physical exam (Primary Care) Vital Signs: Last Vital Signs Pulse 61 01/19/24 09:33 BP 138/80 01/19/24 09:33 Pulse Ox 98 01/19/24 09:33 Oxygen Delivery Method Room Air 01/19/24 09:33 BMI result Body Mass Index 33.1 Tobacco/Smoking Status: Tobacco use Status Tobacco use date assessed 07/14/23 01/19/24 09:29 Patient Tobacco Use Status Never used Tobacco 01/19/24 09:29 e-Cigarette/Vaping Use Never Used 01/19/24 09:29 Thrive Assessment: Date of Thrive Assessment Date Thrive assessed 01/16/24 01/19/24 09:29 Currently or been in a relationship where the following occur: No concerns reported Const General: cooperative Orientation/consciousness: patient oriented x3 Resp Effort & Inspection: normal respiratory effort Auscultation: clear to auscultation bilaterally Cardio Rate: regular rate Rhythm: regular rhythm Heart sounds: S1 normal heart sound present and S2 normal heart sound present Neuro General: patient oriented x3 Extrem Right lower extremity: no edema Left lower extremity: no edema Psych Appearance: grossly normal Mental Status: mental status grossly normal Speech and movement: Normal speech and movement present Affect: normal affect Attitude: cooperative Thought process: Normal thought process present Thought content: Normal thought content present Insight: Good insight present (Psych) Judgement: Good judgement present (Psych) Assessment and Plan Assessment & Plan (1) HTN (hypertension): Code(s): I10 - Essential (primary) hypertension Plan: pt will take BPs at home and send me values via the portal. Plan The patient agreed to the use of a medical terminologist for this encounter. Scribed for KM Bangura by Shireen Walker medical terminologist, on 01/19/2024 at 09:50 EST. Orders: Orders Comprehensive [place]. Panel Fast Today I10 - Essential (primary) hypertension TSH reflex Free T4 Today I10 - Essential (primary) hypertension Lipid Panel Today I10 - Essential (primary) hypertension Complete Blood Count Auto Diff Today I10 - Essential (primary) hypertension UA CC w/rflx Micro + Cult Today I10 - Essential (primary) hypertension Coding Level of Care Code Est Pt Level 3 (74671) Diagnoses HTN (hypertension) I10 Additional Codes ANTHONY-7 Assessment Billing - ANTHONY-7 Assessment Tool: ANTHONY-7 Assessment 07260 ([id number])
[2024-01-19 09:33] VITALS: BP 138/80; PULSE 61; O2SAT 98; BMI 33.1
== END 2024-01-19 11:27 | disposition home or self-care (01) ==
PROVIDERS: PCP Nurse Practitioner Family; Visit Provider Nurse Practitioner Family
DX: I10 Essential (primary) hypertension (principal)

== ENCOUNTER → 2024-01-19 09:23 | Outpatient (BNVA) | payer OTHER, SELFPAY | PROVIDERS: PCP Nurse Practitioner Family; Visit Provider Nurse Practitioner Family | DX: I10 Essential (primary) hypertension (principal); Z79.899 Other long term (current) drug therapy | CPT/HCPCS: 96127 ==

== ENCOUNTER 2024-02-04 09:21 | Outpatient (REF) | payer OTHER, SELFPAY | END 2024-02-04 09:22 | disposition home or self-care (01) | LOC: HO.BBR 09:21 | PROVIDERS: PCP Nurse Practitioner Family; Visit Provider Internal Medicine | DX: Z13.89 Encounter for screening for other disorder (principal) ==

== ENCOUNTER 2024-05-05 08:05 | Outpatient (REF) | payer OTHER, SELFPAY ==
--- OUTSIDE RECORDS SUMMARY | 2024-05-05 08:14 | XMS_ITS | Patient Health Record ---
Author Organization [facility] Address [address] [place] [address] Care Team Providers Care Electrical Engineer Mep Name Role Phone ESTEBAN DUMAS Primary Care Provider Spencer Gomez [phone] ALLERGIES No Known Allergies RESULTS Component Value Reference Range Notes Therapeutic Phlebotomy Reviewed date:07/28/2023 06:30:01 PM Interpretation: Performing Lab:[facility], [address] [place] [id number] Notes/Report: THER/HGB 15.6 14.0-18.0 g/dL THER/HCT TNP 42.0-52.0 % Therapeutic Phlebotomy Phlebotomy Performed 500 mls drawn on 07/28/23. Please note that a copy of this report has been sent to the Primary Care Physician, the ordering physician and any physician designated by patient request. US abdomen comp w elastograp hy (Not yet reviewed by provider) Interpretation: Performing Lab: Notes/Report: [address] [address] Ultrasound Report Signed Patient: Jose Canas MR#: [id number] : 1955 Acct:[id number] Age/Sex: 68 / M ADM Date: 10/08/23 Loc: HO.US Attending Dr: Spencer Hernandez MD Ordering Physician: Spencer Hernandez MD Date of Service: 10/08/23 Procedure(s): US abdomen comp w elastography Accession Number(s): [id number] cc: Esteban Dumas PLATE SETTER-BC; Spencer Hernandez MD EXAMINATION: US COMPLETE ABDOMEN WITH LIVER ELASTOGRAPHY CLINICAL INFORMATION: Hereditary hemochromatosis. COMPARISON: None available. TECHNIQUE: Real-time imaging of the abdominal viscera. Noninvasive ultrasound liver fibrosis assessment is performed using [employer] ElastPQ point quantification shear wave elastography (2D-SWE) with a C5-2 MHz transducer. Multiple elastography samples are obtained. FINDINGS: PANCREAS: Normal. The visualized pancreatic head and body are normal in appearance. The remainder of the pancreas is obscured from visualization by the overlying bowel gas. ABDOMINAL AORTA: The proximal, middle, and distal aortic segments are normal in caliber. INFERIOR VENA CAVA: Visualized portions are normal. LIVER: The liver demonstrates normal size, and contour but with increased echogenicity. No focal lesion or intrahepatic biliary duct dilatation. The right lobe measures 13.7 cm in length. The left lobe measures 10.9 cm in length. Portal flow is towards the liver (hepatopetal). Shear wave liver elastography median stiffness is 1.62 m/s (reference: normal median stiffness is 1.3 m/s or less). At the time of the prior study, this value was 1.7 on the Epiq machine, which is equivalent. IQR/median stiffness to assess sampling precision is 0.14 (reference: good quality data set is IQR/median stiffness of 0.15 or less). GALLBLADDER: There is some comet-tail artifact suggesting adenomyomatosis. The gallbladder is physiologically distended without evidence of stones, sludge, polyps or pericholecystic fluid. COMMON BILE DUCT: Normal in caliber measuring 0.4 cm in diameter. RIGHT KIDNEY: Normal. No hydronephrosis. No renal calculi or focal parenchymal lesions. The kidney measures 11.3 cm in maximum dimension. LEFT KIDNEY: Normal. No hydronephrosis. No renal calculi or focal parenchymal lesions. The kidney measures 11.2 cm in maximum dimension. SPLEEN: Normal. The spleen measures 11.4 cm in maximum dimension. FREE FLUID: None. US/US abdomen comp w elastography IMPRESSION: 1. Echogenic liver consistent with hemochromatosis. 2. Liver elastography: Measurements are suggestive of compensated advanced chronic liver disease but need further test for confirmation. Liver stiffness measurement is without significant change from prior exam (change under 10%). REFERENCE: Society of Radiologists in Ultrasound Liver Stiffness Thresholds (2020): LIVER STIFFNESS THRESHOLDS: *Liver Stiffness equal or less than 1.3 m/s: High probability of being normal. *Liver Stiffness less than 1.7 m/s: In the absence of other known clinical signs, rules out compensated advanced chronic liver disease. *Liver Stiffness 1.7-2.1 m/s: Suggestive of compensated advanced chronic liver disease but need further test for confirmation. *Liver Stiffness over 2.1 m/s: Rules in compensated advanced chronic liver disease. *Liver Stiffness over 2.4 m/s: Suggestive of clinically significant portal hypertension. QUALITY OF DATA SET: *IQR/Median value equal or less than 0.15 implies a quality data set. *IQR/Median value over 0.15 implies a poor quality data set. SIGNIFICANT CHANGE FROM PRIOR EXAM: Significant change if liver stiffness measurement is 10% or greater from prior exam. OTHER CONSIDERATIONS: The stage of liver fibrosis may be overestimated in the setting of acute hepatitis, liver inflammation, elevated liver function tests, hepatic vascular congestion, obstructive cholestasis, non-fasting state, and infiltrative diseases such as amyloidosis and lymphoma. In some patients with NAFLD, the liver stiffness thresholds for compensated advanced chronic liver disease may be lower. In causes other than viral hepatitis and NAFLD, liver stiffness thresholds are not well established. Dictated By: Willard Olguin MD Signed By: <Electronically signed by Willard Olguin MD in OV> 10/29/23 1439 DD/ 0839 TD/TT: Manager Of Financial Planning: BETHANY IRON PROFILE Reviewed date:10/27/2023 10:49:29 PM Interpretation: Performing Lab:[address] [address] Notes/Report: Iron 139 45-160 mcg/dL Total Iron Binding Capacity 266 228-428 mcg/dL Percent Iron Saturation 52 15-50 % Unsaturated Iron Binding 127 Ferritin Reviewed date:10/28/2023 09:54:22 AM Interpretation: Performing Lab:[address] [address] Notes/Report: Ferritin 28 20-250 ng/mL Therapeutic Phlebotomy Reviewed date:10/28/2023 09:54:44 AM Interpretation: Performing Lab:[address] [address] Notes/Report: THER/HGB 15.1 14.0-18.0 g/dL THER/HCT TNP 42.0-52.0 % Therapeutic Phlebotomy Phlebotomy Performed 500 mls drawn on 10/27/23. Please note that a copy of this report has been sent to the Primary Care Physician, the ordering physician and any physician designated by patient request. Alpha Fetoprotein Reviewed date:11/22/2023 06:04:11 PM Interpretation: Performing Lab:[address] [address] Notes/Report: Alpha Fetoprotein 4.1 <6.1 ng/mL This test was performed using the Pam Reina chemiluminescent method. Values obtained from different assay methods cannot be used interchangeably. AFP levels, regardless of value, should not be interpreted as absolute evidence of the presence or absence of disease. THIS TEST WAS PERFORMED AT: [facility] [address] [address] KAY CHIRINOS MD Liver Fibrosis Pnl Reviewed date:11/22/2023 06:04:24 PM Interpretation: Performing Lab:[address] [address] Notes/Report: Liver Fibrosis Score 0.14 Liver Fibrosis Stage F0 Liver Fibrosis Interpretation SEE NOTE no fibrosis Fibro Test Score (f) Metavir Score f>=0 and f<=0.21 : F0 (no fibrosis) f>0.21 and f<=0.27 : F0-F1 (no fibrosis) f>0.27 and f<=0.31 : F1 (minimal fibrosis) f>0.31 and f<=0.48 : F1-F2 (minimal fibrosis) f>0.48 and f<=0.58 : F2 (moderate fibrosis) f>0.58 and f<=0.72 : F3 (advanced fibrosis) f>0.72 and f<=0.74 : F3-F4 (advanced fibrosis) f>0.74 and f<=1.00 : F4 (severe fibrosis) Nec Inflam Act Score 0.07 Nec Inflam Act Grade A0 Nec Inflam Act Interpretation SEE NOTE no activity ActiTest Score (a) Metavir Score a>=0 and a<=0.17 : A0 (no activity) a>0.17 and a<=0.29 : A0-A1 (no activity) a>0.29 and a<=0.36 : A1 (minimal activity) a>0.36 and a<=0.52 : A1-A2 (minimal activity) a>0.52 and a<=0.60 : A2 (significant activity) a>0.60 and a<=0.62 : A2-A3 (significant activity) a>0.62 and a<=1.00 : A3 (severe activity) LUZ-Lrnrp-0-Macroglobulin 116 106-279 mg/dL FIB-Haptoglobin 143 43-212 mg/dL FIB-Apolipoprotein A1 151 94-176 mg/dL FIB-Total Bilirubin 0.5 0.2-1.2 mg/dL FIB-GGT 42 3-70 U/L FIB-ALT 22 9-46 U/L Reference ID [id number] Footnote SEE NOTE The reliability of results is dependent on compliance with the preanalytical and analytical conditions recommended by [employer]. The tests have to be deferred for: acute hemolysis, acute hepatitis, acute inflammation, extra hepatic cholestasis. The advice of a specialist should be sought for interpretation in chronic hemolysis and Gilbert's syndrome. The test interpretation is not validated in liver transplant patients. Isolated extreme values of one of the components should lead to caution in interpreting the results. In case of discordance between a biopsy result and a test, it is recommended to seek the advice of a specialist. The causes of these discordances could be due to a flaw of the test or to a flaw in the biopsy: i.e. a liver biopsy has a 33% variability rate for one fibrosis stage. FibroTest is interpretable for chronic hepatitis B and C, alcoholic and non alcoholic steatosis. ActiTest is interpretable for chronic hepatitis B and C. The performance characteristics have been determined by [facility]. It has not been cleared or approved by the U.S. Food and Drug Administration. Performance characteristics refer to the analytical performance of the test. [employer]ee, the associated logo, [employer] (PV[employer]) and all associated [employer] espinoza are the registered trademarks of [employer]. All third alliance party espinoza - (R) and (TM) - are the property of their respective owners. (C) [id number] [employer]. All rights reserved. THIS TEST WAS PERFORMED AT: [facility] [address] [place] [address] HAKEEM VALDEZ MD,PHD,ANDREW Therapeutic Phlebotomy Reviewed date:02/05/2024 12:29:33 PM Interpretation: Performing Lab:[facility], [address] [place] [address], [place] [address] Notes/Report: THER/HGB 16.1 14.0-18.0 g/dL THER/HCT TNP 42.0-52.0 % Therapeutic Phlebotomy Phlebotomy Performed 500 mls drawn on 02/04/24. Please note that a copy of this report has been sent to the Primary Care Physician, the ordering physician and any physician designated by patient request. REASON FOR REFERRAL No Information MEDICATIONS Medication SIG (Take, Route, Fr equency, Duration) Notes Start Date End Date Status hydroCHLOROthiazide Active Lisinopril Active Simvastatin Active Viagra Active IMMUNIZATIONS Vaccine Route Administration Date Status Comme nts Influenza Unknown 03/15/2020 Administered Influenza Unknown 03/13/2022 Administered Influenza Unknown 03/18/2023 Administered SOCIAL HISTORY Sex Assigned At : Social History Observation Description Sex Assigned At Unknown PROBLEMS Problem Type ICD Code Onset Dates Problem Status W/U Status Risk SNOMED Code Notes Problem Encounter for screening for malignant neoplasm of colon (Z12.11) Active confirmed 447068011 Problem History of adenomatous polyp of colon (Z86.010) Active confirmed 951337793 Problem Hereditary hemochromatosis (E83.110) Active confirmed [id number] VITAL SIGNS Temperature 97.5 degrees Fahrenheit 09/03/2023 Blood pressure diastolic 00 mm Hg 09/03/2023 Height 68.75 in 09/03/2023 Blood pressure systolic 000 mm Hg 09/03/2023 Weight 220 lb 4 oz lbs 09/03/2023 BMI 32.76 kg/m2 09/03/2023 Encounters Encounter Location Date Provider Diagnosis [facility] [address] [place] [address] 09/03/2023 Spencer Hernandez Hereditary hemochromatosis E83.110 and History of adenomatous polyp of colon Z86.010 ASSESSMENTS Encounter Date Diagnosis Assessment Notes Treatment Notes Treatment Clinical Notes 09/03/2023 History of adenomato us polyp of colon (ICD-10 - Z86.010) 09/03/2023 Hereditary hemochromatosis (ICD-10 - E83.110) PLAN OF TREATMENT Pending Test Test Name Order Date LIVER PROFILE 01/08/2013 LIVER PROFILE 05/10/2020 LIVER PROFILE 07/05/2022 IRON + IBC (FE) 12/05/2013 FERRITIN 12/05/2013 ALPHA-FETOPROTEIN,TUMOR MARKER 8 ALPHA-FETOPROTEIN,TUMOR MARKER 4 US ABD 05/10/2020 US ABDOMEN COMP WITH ELASTOGRAPHY 2022 Alpha Fetoprotein 07/05/2022 Liver Fibrosis Pnl 07/05/2022 Liver Fibrosis Pnl 09/03/2023 US abdomen comp w elastography 4 US abdomen comp w elastography 4 Future Test Test Name Order Date COLONOSCOPY 01/08/2013 COLONOSCOPY 01/13/2018 COLONOSCOPY 07/05/2022 Insurance Providers Payer Name Payer Address Payer Phone Subscriber Number Group Number Insured Name Patient Relationship to Insured Coverage Start Date Coverage End Date [facility] [address] [address] [place] [address] [id number] JOSE CANAS Self - patient is the insured 3 MEDICAL (GENERAL) HISTORY Medical History History ICD Code Colonoscopy 09/16/2007 with removal of a tubular adenoma; colonoscopy in 01/2013 1 small tubular adenoma removed, diverticulosis, internal hemorrhoids; colonoscopy in 01/2018 with a small tubular adenoma removed Hypertension Hyperlipidemia In 05/2007 Ferritin was 613 a nd Iron sat was nearly 100%--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
--- OUTSIDE RECORDS SUMMARY | 2024-05-05 08:14 | XMS_ITS ---
Author Organization [facility] Address [address] [place] [address] Care Team Providers Care Grading Supervisor Name Role Phone SHAMIRYojana ESTEBAN Primary Care Provider Spencer Gomez [phone] REASON FOR VISIT screening, hx polyps Encounters Encounter Location Date Provider Diagnosis [facility] Outpatient [address] [place] [phone] 12/27/2022 Spencer Hernandez Encounter for scre ening colonoscopy Z12.11 ASSESSMENTS Encounter Date Diagnosis Assessment Notes Treatment Notes Treatment Clinical Notes 12/27/2022 Encounter for screening colonoscopy (ICD-10 - Z12.11) PLAN OF TREATMENT No Information
--- OUTSIDE RECORDS SUMMARY | 2024-05-05 08:14 | XMS_ITS ---
Author Organization [facility] Address [address] [place] [address] Care Team Providers Care Clinical Faculty Name Role Phone ESTEBAN PORTER Primary Care Provider Spencer Gomez [phone] ALLERGIES No Known Allergies REASON FOR VISIT Patient presents today for hemochromatosis MEDICATIONS Medication SIG (Take, Route, Fr equency, Duration) Notes Start Date End Date Status hydroCHLOROthiazide Active Lisinopril Active Simvastatin Active Viagra Active VITAL SIGNS BMI 32.76 kg/m2 09/03/2023 Blood pressure systolic 000 mm Hg 09/03/19 24 Blood pressure diastolic 00 mm Hg 024 Height 68.75 in 09/03/2023 Temperature 97.5 degrees Fahrenheit 09/03/19 24 Weight 220 lb 4 oz lbs 09/03/2023 Encounters Encounter Location Date Provider Diagnosis [facility] [address] [place] [address] 09/03/2023 Spencer Hernandez Hereditary hemochromatosis E83.110 and History of adenomatous polyp of colon Z86.010 ASSESSMENTS Encounter Date Diagnosis Assessment Notes Treatment Notes Treatment Clinical Notes 09/03/2023 Hereditary hemochromatosis (ICD-10 - E83.110) 09/03/2023 History of adenomato us polyp of colon (ICD-10 - Z86.010) PLAN OF TREATMENT Pending Test Test Name Order Date ALPHA-FETOPROTEIN,TUMOR MARKER 4 Liver Fibrosis Pnl 09/03/2023 US abdomen comp w elastography 4 Next Appt Details Follow Up: 1 Year, Reason: Progress Notes * Examination Category Sub-Category Detail Notes General Examination GENERAL APPEARANCE: pleasant , well nourished, well developed, in no acute distress EYES: sclera non-icteric NECK/THYROID: no cervical lymphade nopathy, neck supple HEART: S1, S2 normal LUNGS: clear to auscultatio n bilaterally ABDOMEN: normal bowel sounds, no guarding or rigidity, no hepatosplenomegaly, no masses palpable, soft, nontender, nondistended. NEUROLOGIC: alert and oriented SKIN: nonjaundiced, no spi anderson angiomata. EXTREMITIES: no edema ORAL CAVITY: mucosa moist
[2024-05-05 09:14] LABS: Iron 83 mcg/dL (45-160); Percent Iron Saturation 33 % (15-50); Total Iron Binding Capacity 254 mcg/dL (228-428); Unsaturated Iron Binding 171 ug/dL
[2024-05-05 09:30] LABS: Ferritin 26 ng/mL (20-250)
== END 2024-05-05 08:06 | disposition home or self-care (01) ==
LOC: HO.BBR 08:05
PROVIDERS: PCP Nurse Practitioner Family; Visit Provider Internal Medicine
DX: E83.110 Hereditary hemochromatosis (principal)
CPT/HCPCS: 36415; 82728; 83540

== ENCOUNTER 2024-07-28 07:29 | Outpatient (REF) | payer OTHER, SELFPAY ==
--- OUTSIDE RECORDS SUMMARY | 2024-07-28 07:31 | XMS_ITS | Patient Health Record ---
Author Organization [facility] Address [address] [place] [address] Care Team Providers Care Tank Wagon Driver Name Role Phone ESTEBAN DUMAS Primary Care Provider Spencer Gomez [phone] Allergies No Known Allergies Results Component Value Reference Range Notes US abdomen comp w elastograp hy (Not yet reviewed by provider) Interpretation: Performing Lab: Notes/Report: [address] [address] Ultrasound Report Signed Patient: Jose Canas MR#: [id number] : 1955 Acct:[id number] Age/Sex: 68 / M ADM Date: 10/08/23 Loc: HO.US Attending Dr: Spencer Hernandez MD Ordering Physician: Spencer Hernandez MD Date of Service: 10/08/23 Procedure(s): US abdomen comp w elastography Accession Number(s): [id number] cc: Esteban Dumas [facility]-; Spencer Hernandez MD EXAMINATION: US COMPLETE ABDOMEN [...] in OV> 10/29/23 1439 DD/ 0839 TD/TT: Electric Motor Fitter: [place] [address] Ultrasound Report Signed Patient: Jose Canas MR#: [id number] : 1955 Acct:[id number] Age/Sex: 68 / M ADM Date: 10/08/23 Loc: HO.US Attending Dr: Spencer Hernandez MD Ordering Physician: Spencer Hernandez MD Date of Service: 10/08/23 Procedure(s): US abdomen comp w elastography Accession Number(s): [id number] cc: Esteban Dumas [facility]; Spencer Hernandez MD EXAMINATION: US COMPLETE ABDOMEN WITH LIVER ELASTOGRAPHY CLINICAL INFORMATION: Hereditary hemochromatosis. COMPARISON: None available. TECHNIQUE: Real-time imaging of the abdominal viscera. Noninvasive ultrasound liver fibrosis assessment is performed using Clifton ElastPQ point quantification shear wave elastography (2D-SWE) with a C5-2 MHz transducer. Multiple elastography samples are obtained. FINDINGS: PANCREAS: Normal. Th e visualized pancreatic head and body are normal in appearance. The remainder of the pancreas is obscured from visualization by the overlying bowel gas. ABDOMINAL AORTA: The proximal, middle, and distal aortic segments are normal in caliber. INFERIOR VENA CAVA: Visualized portions are normal. LIVER: The liver demonstrates normal size, and contour but with increased echogenici ty. No focal lesion or intrahepatic biliary duct dilatation. The right lobe measu res 13.7 cm in length. The left lobe measures 10.9 cm in length. Portal flow is towar ds the liver (hepatopetal). Shear wave liver elastography median stiffness is 1.62 m/s (reference: normal median stiffn ess is 1.3 m/s or less). At the time of the prior study, this value wa s 1.7 on the Epiq machine, which is equivalent. IQR/median stiffness to assess sampling precision is 0.14 (reference: good quality data se t is IQR/median stiffness of 0.15 or less). GALLBLADDER: There i s some comet-tail artifact suggesting adenomyomatosis. The gallbladder is physiologically distended without evidence of stones, sludge, polyps or pericholecystic fluid. COMMON BILE DUCT: Normal in caliber measuring 0.4 cm in diameter. RIGHT KIDNEY: Normal . No hydronephrosis. No renal calculi or focal [...] Echogenic liver consistent with hemochromatosis. 2. Liver elastograph y: Measurements are suggestive of compensated advanced chronic ysabel er disease but need further test for confirmation. Liver stiffness measurement is without significant change from prior exam (change under 10%). REFERENCE: Society of Radiologi sts in Ultrasound Liver Stiffness Thresholds (2020): LIVER STIFFNESS THRESHOLDS: *Liver Stiffness equ al or less than 1.3 m/s: High probability of being normal. *Liver Stiffness les s than 1.7 m/s: In the absence of other known clinical signs, rule s out compensated advanced chronic liver disease. *Liver Stiffness 1.7-2.1 m/s: Suggestive of compensated advanced chronic liver diseas e but need further test for confirmation. *Liver Stiffness ove r 2.1 m/s: Rules in compensated advanced chronic liver disease. *Liver Stiffness ove r 2.4 m/s: Suggestive of clinically significant portal hypertension. QUALITY OF DATA SET: *IQR/Median value eq ual or less than 0.15 implies a quality data set. *IQR/Median value ov er 0.15 implies a poor quality data set. SIGNIFICANT CHANGE F ROM PRIOR EXAM: Significant change i f liver stiffness measurement is 10% or greater from prior exam. OTHER CONSIDERATIONS: The stage of liver fibrosis may be overestimated in the setting of acute hepatitis, ysabel er inflammation, elevated liver function tests, hepatic vascular congestion, obstructive cholestasis, non-fasting state, and infiltrat jon diseases such as amyloidosis and lymphoma. In some patients with NAFLD, the liver stiffness thresholds for compensated advanced chronic liver disease may be lower. In causes other than viral hepatitis and NAFLD, liver stiffness thresholds are not well established. Dictated By: Willard Olguin MD Signed By: <Electronically signed by Willard Olguin MD in OV> 10/29/23 1439 DD/ 0839 TD/TT: Electric Motor Fitter: BETHANY IRON PROFILE Reviewed date:10/27/2023 10:49:29 PM Interpretation: Performing Lab:[facility], [address] [place] [phone] Notes/Report: Iron 139 45-160 mcg/dL Total Iron Binding Capacity 266 228-428 mcg/dL Percent Iron Saturation 52 15-50 % Unsaturated Iron Binding 127 Ferritin Reviewed date:10/28/2023 09:54:22 AM Interpretation: Performing Lab:[address] [phone] Notes/Report: Ferritin 28 20-250 ng/mL Therapeutic Phlebotomy Reviewed date:10/28/2023 09:54:44 AM Interpretation: Performing Lab:[facility], [address] [place] [phone] Notes/Report: THER/HGB 15.1 14.0-18.0 g/dL THER/HCT TNP 42.0-52.0 % Therapeutic Phlebotomy Phlebotomy Performed 500 mls drawn on 10/27/23. Please note that a copy of this report has been sent to the Primary Care Physician, the ordering physician and any physician designated by patient request. Alpha Fetoprotein Reviewed date:11/22/2023 06:04:11 PM Interpretation: Performing Lab:[facility], [address] [place] [phone] Notes/Report: Alpha Fetoprotein 4.1 <6.1 ng/mL This test was performed using the Pam Ganado chemiluminescent method. Values obtained from different assay methods cannot be used interchangeably. AFP levels, regardless of value, should not be interpreted as absolute evidence of the presence or absence of disease. THIS TEST WAS PERFORMED AT: [facility] [address] [place] [phone] KAY CHIRINOS MD Liver Fibrosis Pnl Reviewed date:11/22/2023 06:04:24 PM Interpretation: Performing Lab:[facility], [address] [place] [phone] Notes/Report: Liver Fibrosis Score 0.14 Liver Fibrosis [...] a>0.62 and a<=1.00 : A3 (severe activity) PML-Ohggz-8-Macroglobul in 116 106-279 mg/dL FIB-Haptoglobin 143 43-212 mg/dL FIB-Apolipoprotein A1 151 94-176 mg/dL FIB-Total Bilirubin 0.5 0.2-1.2 mg/dL FIB-GGT 42 3-70 U/L FIB-ALT 22 9-46 U/L Reference ID [id number] Footnote SEE NOTE The reliability of results is dependent on compliance with the preanalytical and analytical conditions recommended by [employer]. The tests have to be deferred for: [...] The performance characteristics have been determined by [facility]. It has not been cleared or approved by the U.S. Food and Drug Administration. Performance characteristics refer to the analytical performance of the test. Graftys, the associated logo, [employer] and all associated Currently espinoza are the registered trademarks of Currently. All third alliance party espinoza - (R) and (TM) - are the property of their respective owners. (C) [id number] Currently Incorporated. All rights reserved. THIS TEST WAS PERFORMED AT: [email or web address] [facility] [address] [place] [address] HAKEEM VALDEZ MD,PHD,ANDREW Therapeutic Phlebotomy Reviewed date:02/05/2024 12:29:33 PM Interpretation: Performing Lab:[facility], [address] [place] [phone] Notes/Report: THER/HGB 16.1 14.0-18.0 g/dL THER/HCT TNP 42.0-52.0 % Therapeutic Phlebotomy Phlebotomy Performed 500 mls drawn on 02/04/24. Please note that a copy of this report has been sent to the Primary Care Physician, the ordering physician and any physician designated by patient request. IRON PROFILE Reviewed date:05/06/2024 09:33:49 PM Interpretation: Performing Lab:[facility], [address] [place] [phone] Notes/Report: Iron 83 45-160 mcg/dL Total Iron Binding Capacity 254 228-428 mcg/dL Percent Iron Saturation 33 15-50 % Unsaturated Iron Binding 171 Ferritin Reviewed date:05/06/2024 09:33:37 PM Interpretation: Performing Lab:[facility], [address] [place] [phone] Notes/Report: Ferritin 26 20-250 ng/mL Therapeutic Phlebotomy Reviewed date:05/06/2024 09:33:20 PM Interpretation: Performing Lab:[facility], [address] [place] [phone] Notes/Report: THER/HGB 14.2 14.0-18.0 g/dL THER/HCT TNP 42.0-52.0 % Therapeutic Phlebotomy Phlebotomy Performed 500 mls drawn on 05/05/24. Please note that a copy of this report has been sent to the Primary Care Physician, the ordering physician and any physician designated by patient request. Reason For Referral No Information Medications Medication SIG (Take, Route, Fr equency, Duration) Notes Start Date End Date Status hydroCHLOROthiazide Active Lisinopril Active Simvastatin Active Viagra Active Immunizations Vaccine Route Administration Date Status Comme nts Influenza Unknown 03/15/2020 Administered Influenza Unknown 03/13/2022 Administered Influenza Unknown 03/18/2023 Administered Problems Problem Type SNOMED Code ICD Code Onset Dates Problem Status W/U Status Risk Notes Problem 050183182 Encounter for screening for malignant neoplasm of colon (Z12.11) Active confirmed Problem 885588786 History of adenomatous polyp of colon (Z86.010) Active confirmed Problem 43596102 Hereditary hemochromatosis (E83.110) Active confirmed Vital Signs Temperature 97.5 degrees Fahrenheit 09/03/2023 Blood pressure diastolic 00 mm Hg 09/03/2023 Height 68.75 in 09/03/2023 Blood pressure systolic 000 mm Hg 09/03/2023 Weight 220 lb 4 oz lbs 09/03/2023 BMI 32.76 kg/m2 09/03/2023 Encounters Encounter Location Date Provider Diagnosis [facility] [address] [place] [address] 09/03/2023 Spencer Hernandez Hereditary hemochromatosis E83.110 and History of adenomatous polyp of colon Z86.010 Assessments Encounter Date Diagnosis (ICD Code) Assessment Notes Treatment Notes Treatment Clinical Notes Section Notes 09/03/2023 History of adenomatous polyp of colon (ICD-10 - Z86.010) Overall, Jose appears quite well. We did review his negative colonoscopy from last year in the need for a followup colonoscopy in 2027 for further screening. He His hemachromatosis seems to be very stable on his current phlebotomy regimen of every 3 months. I did advise him to continue this same phlebotomy schedule and we shall Monitor his iron studies every 6 months or so. I shall schedule him for his followup yearly ultrasound along with an alpha-fetoprotein level and liver fibrosis score today. If things remained well I will plan to see him in one year for a followup visit. I did advise him to call prior to that if he has any problems or questions I can be of assistance with. Jose was comfortable with this plan. Thank you again for allowing me to participate in Jose's care. I shall continue to keep you advised of his progress.. 09/03/2023 Hereditary hemochromatosis (ICD-10 - E83.110) Overall, Jose appears quite well. We did review his negative colonoscopy from last year in the need for a followup colonoscopy in 2027 for further screening. He His hemachromatosis seems to be very stable on his current phlebotomy regimen of every 3 months. I did advise him to continue this same phlebotomy schedule and we shall Monitor his iron studies every 6 months or so. I shall schedule him for his followup yearly ultrasound along with an alpha-fetoprotein level and liver fibrosis score today. If things remained well I will plan to see him in one year for a followup visit. I did advise him to call prior to that if he has any problems or questions I can be of assistance with. Jose was comfortable with this plan. Thank you again for allowing me to participate in Jose's care. I shall continue to keep you advised of his progress.. Plan Of Treatment Pending Test Test Name Order Date LIVER PROFILE 05/10/2020 LIVER PROFILE 07/05/2022 LIVER PROFILE 01/08/2013 IRON + IBC (FE) 12/05/2013 FERRITIN 12/05/2013 ALPHA-FETOPROTEIN,TUMOR MARKER 4 ALPHA-FETOPROTEIN,TUMOR MARKER 8 US ABD 05/10/2020 US ABDOMEN COMP WITH [...] Insured Coverage Start Date Coverage End Date [facility] [address] [address] [place] [address] [id number] JOSE CANAS Self - patient is the insured 3 Medical (General) History Medical History History ICD Code Colonoscopy 09/16/2007 [...] changed to Q 3 months in approx 2018 Denies CA,DM,CVA,Lung disease,renal dise ase Hx of Chris's palsy-recovered Negative screening colonoscopy in 2022 Surgical History Surgery Date(Month/Year) Vasectomy Hernia surgery x 2
[2024-07-28 10:28] LABS: Appearance Urine Clear; Color Urine Yellow; Glucose Urine UA Negative (Negative); Leukocyte Esterase Urine Negative (Negative); Nitrite Urine Negative (Negative); Specific Gravity - Urine 1.025 (1.005-1.025); Urine Blood Negative (Negative); Urine Ketones Negative (Negative); Urine Protein Negative (Neg-Trace)
[2024-07-28 10:34] LABS: MANUAL DIFF FLAG NO
[2024-07-28 10:43] LABS: Basophils Percent Auto 0.5 % (0-2); Eosinophils Absolute Auto 0.1 X10*3/uL (0.0-0.4); Eosinophils Percent Auto 1.3 % (0-4); Hematocrit 45.6 % (42.0-52.0); Hemoglobin 14.9 g/dl (14.0-18.0); Imm Gran Abs Auto 0.04 X10*3/uL (0.00-0.03); Imm Gran Pct Auto 0.5 % (0.0-0.4); Lymphocytes Absolute Auto 2.2 X10*3/uL (1.2-4.9); Lymphocytes Percent Auto 27.9 % (20-40); Mean Corpuscular HGB Conc 32.7 g/dl (31.0-36.0); Mean Corpuscular Hemoglobin 28.3 pg (27.0-33.0); Mean Corpuscular Volume 86.7 fL (80.0-98.0); Mean Platelet Volume 12.5 fL (9.4-12.4); Monocytes Absolute Auto 0.6 X10*3/uL (0.1-1.2); Neutrophils Percent Auto 62.8 % (45-73); Platelet Count 182 X10*3/uL (160-400); Red Blood Count 5.26 X10*6/uL (4.60-5.80); Red Cell Distribution Width 13.3 % (11.0-16.0)
[2024-07-28 11:22] LABS: Alanine Aminotransferase 46 U/L (0-40); Albumin Level 4.3 g/dL (3.5-5.0); Alkaline Phosphatase 87 U/L (39-117); Anion Gap 12 (12-20); Aspartate Amino Transferase 37 U/L (5-37); Blood Urea Nitrogen 35 mg/dL (9-16); Calcium 9.5 mg/dL (8.4-10.2); Carbon Dioxide 27 mmol/L (22-29); Chloride 107 mmol/L (96-108); Cholesterol 124 mg/dL (<200); Estimated Glomerular Filt Rate > 60; Glucose Fasting 113 mg/dL (60-99); HDL Cholesterol 38 mg/dL (>40); LDL Cholesterol Calculated 62 mg/dL (<100); Potassium 4.2 mmol/L (3.3-5.1); Sodium 142 mmol/L (135-145); Total Protein 7.3 g/dL (6.5-8.0); Triglycerides 122 mg/dL (<150)
[2024-07-28 11:45] LABS: TSH reflex Free T4 1.71 uIU/mL (0.32-4.0)
== END 2024-07-28 07:30 | disposition home or self-care (01) ==
LOC: HO.HMGCLDS 07:29
PROVIDERS: PCP Nurse Practitioner Family; Visit Provider Nurse Practitioner Family
DX: I10 Essential (primary) hypertension (principal)
CPT/HCPCS: 36415; 80053; 80061; 81003; 84443; 85025

== ENCOUNTER 2024-08-05 09:04 | Outpatient (REF) | payer OTHER, SELFPAY ==
--- OUTSIDE RECORDS SUMMARY | 2024-08-05 09:38 | XMS_ITS | Patient Health Record ---
Author Organization [facility] Address [address] [place] [address] Care Team Providers Care Vp Construction Name Role Phone ESTEBAN DUMAS Primary Care Provider Spencer Gomez [phone] Allergies No Known Allergies Results Component Value Reference Range Notes US abdomen comp w elastograp hy (Not yet reviewed by provider) Interpretation: Performing Lab: Notes/Report: [address] [address] Ultrasound Report Signed Patient: Jose Canas MR#: [id number] : 1955 Acct:[id number] Age/Sex: 68 / M ADM Date: 10/08/23 Loc: HO.US Attending Dr: Spencer Hernandez MD Ordering Physician: Spencer Hernandez MD Date of Service: 10/08/23 Procedure(s): US abdomen comp w elastography Accession Number(s): [id number] cc: Esteban Dumas [facility]-; Spencer Hernandez MD EXAMINATION: US COMPLETE ABDOMEN [...] in OV> 10/29/23 1439 DD/ 0839 TD/TT: Tire Room Supervisor: [place] [address] Ultrasound Report Signed Patient: Jose Canas MR#: [id number] : 1955 Acct:[id number] Age/Sex: 68 / M ADM Date: 10/08/23 Loc: HO.US Attending Dr: Spencer Hernandez MD Ordering Physician: Spencer Hernandez MD Date of Service: 10/08/23 Procedure(s): US abdomen comp w elastography Accession Number(s): [id number] cc: Esteban Dumas [facility]; Spencer Hernandez MD EXAMINATION: US COMPLETE ABDOMEN [...] in OV> 10/29/23 1439 DD/ 0839 TD/TT: Tire Room Supervisor: BETHANY IRON PROFILE Reviewed date:10/27/2023 10:49:29 PM Interpretation: Performing Lab:[facility], [address] [place] [phone] Notes/Report: Iron 139 45-160 mcg/dL Total Iron Binding Capacity 266 228-428 mcg/dL Percent Iron Saturation 52 15-50 % Unsaturated Iron Binding 127 Ferritin Reviewed date:10/28/2023 09:54:22 AM Interpretation: Performing Lab:[address] [phone] Notes/Report: Ferritin 28 20-250 ng/mL Therapeutic Phlebotomy Reviewed date:10/28/2023 09:54:44 AM Interpretation: Performing Lab:[facility], [address] [place] [phone] Notes/Report: THER/HGB 15.1 14.0-18.0 g/dL THER/HCT TNP 42.0-52.0 % Therapeutic Phlebotomy Phlebotomy Performed 500 mls drawn on 10/27/23. Please note that a copy of this report has been sent to the Primary Care Physician, the ordering physician and any physician designated by patient request. Alpha Fetoprotein Reviewed date:11/22/2023 06:04:11 PM Interpretation: Performing Lab:[facility], [address] [place] [phone] Notes/Report: Alpha Fetoprotein 4.1 <6.1 ng/mL This test was performed using the Pam Reina chemiluminescent method. Values obtained from different assay methods cannot be used interchangeably. AFP levels, regardless of value, should not be interpreted as absolute evidence of the presence or absence of disease. THIS TEST WAS PERFORMED AT: [facility] [address] [place] [phone] KAY CHIRINOS MD Liver Fibrosis Pnl Reviewed date:11/22/2023 06:04:24 PM Interpretation: Performing Lab:[facility], [address] [place] [phone] Notes/Report: Liver Fibrosis Score 0.14 Liver Fibrosis [...] a>0.62 and a<=1.00 : A3 (severe activity) QDA-Eeyqx-8-Macroglobul in 116 106-279 mg/dL FIB-Haptoglobin 143 43-212 mg/dL FIB-Apolipoprotein A1 151 94-176 mg/dL FIB-Total Bilirubin 0.5 0.2-1.2 mg/dL FIB-GGT 42 3-70 U/L FIB-ALT 22 9-46 U/L Reference ID [id number] Footnote SEE NOTE The reliability of results [...] The performance characteristics have been determined by [facility]. It has not been cleared or approved by the U.S. Food and Drug Administration. Performance characteristics refer to the analytical performance of the test. VerbalizeIt, the associated logo, [employer] and all associated [employer] espinoza are the registered trademarks of [employer]. All third constitution party espinoza - (R) and (TM) - are the property of their respective owners. (C) [id number] [employer]orporated. All rights reserved. THIS TEST WAS PERFORMED AT: [facility] [address] [place] [address] HAKEEM VALDEZ MD,PHD,ANDREW Therapeutic Phlebotomy Reviewed date:02/05/2024 12:29:33 PM Interpretation: Performing Lab:[facility], [address] [place] [phone] Notes/Report: THER/HGB 16.1 14.0-18.0 g/dL THER/HCT TNP 42.0-52.0 % Therapeutic Phlebotomy Phlebotomy Performed 500 mls drawn on 02/04/24. Please note that a copy of this report has been sent to the Primary Care Physician, the ordering physician and any physician designated by patient request. IRON PROFILE Reviewed date:05/06/2024 09:33:49 PM Interpretation: Performing Lab:[facility], [address] [place] [phone] Notes/Report: Iron 83 45-160 mcg/dL Total Iron Binding Capacity 254 228-428 mcg/dL Percent Iron Saturation 33 15-50 % Unsaturated Iron Binding 171 Ferritin Reviewed date:05/06/2024 09:33:37 PM Interpretation: Performing Lab:[facility], [address] [place] [phone] Notes/Report: Ferritin 26 20-250 ng/mL Therapeutic Phlebotomy Reviewed date:05/06/2024 09:33:20 PM Interpretation: Performing Lab:[facility], [address] [place] [phone] Notes/Report: THER/HGB 14.2 14.0-18.0 g/dL THER/HCT TNP [...] Problem Status W/U Status Risk Notes Problem 946712291 Encounter for screening for malignant neoplasm of colon (Z12.11) Active confirmed Problem 677735596 History of adenomatous polyp of colon (Z86.010) Active confirmed Problem 75696215 Hereditary hemochromatosis (E83.110) Active confirmed Vital Signs Temperature 97.5 degrees Fahrenheit 09/03/2023 Blood pressure diastolic 00 mm Hg 09/03/2023 Height 68.75 in 09/03/2023 Blood pressure systolic 000 mm Hg 09/03/2023 Weight 220 lb 4 oz lbs 09/03/2023 BMI 32.76 kg/m2 09/03/2023 Encounters Encounter Location Date Provider [facility] [address] [place] [address] 09/03/2023 Spencer Hernandez Hereditary hemochromatosis E83.110 and [...] Test Test Name Order Date LIVER PROFILE 07/05/2022 LIVER PROFILE 01/08/2013 LIVER PROFILE 05/10/2020 IRON + IBC (FE) 12/05/2013 FERRITIN 12/05/2013 ALPHA-FETOPROTEIN,TUMOR MARKER 4 ALPHA-FETOPROTEIN,TUMOR MARKER 8 US ABD 05/10/2020 US ABDOMEN COMP WITH ELASTOGRAPHY 2022 Alpha Fetoprotein 07/05/2022 Liver Fibrosis Pnl 09/03/2023 Liver Fibrosis Pnl 07/05/2022 US abdomen comp w elastography 4 US abdomen comp w elastography 4 Future Test Test Name Order Date COLONOSCOPY 01/08/2013 COLONOSCOPY 01/13/2018 COLONOSCOPY 07/05/2022 Insurance Providers Payer Name Payer Address Payer Phone Subscriber Number Group Number Insured Name Patient Relationship to Insured Coverage Start Date Coverage End Date [facility] [address] [address] [place] [address] [id number] JOSE CANAS Self - patient is the [...] Q 3 months in approx 2018 Denies [place],DM,CVA,Lung disease,renal dise ase Hx of Chris's palsy-recovered Negative screening colonoscopy in 2022 Surgical History Surgery Date(Month/Year) Vasectomy Hernia surgery x 2
--- OUTSIDE RECORDS SUMMARY | 2024-08-05 09:38 | XMS_ITS ---
Author Organization [facility] Address [address] [place] [phone] Care Team Providers Care Industrial Education Instructor Name Role Phone ESTEBAN PORTER Primary Care Provider Spencer Gomez [phone] Allergies No Known Allergies REASON FOR VISIT Patient presents today for hemochromatosis Medications Medication SIG (Take, Route, Fr equency, Duration) Notes Start Date End Date Status hydroCHLOROthiazide Active Lisinopril Active Simvastatin Active Viagra Active Vital Signs Temperature 97.5 degrees Fahrenheit 09/03/19 24 Blood pressure systolic 000 mm Hg 09/03/19 24 Blood pressure diastolic 00 mm Hg 024 Height 68.75 in 09/03/2023 Weight 220 lb 4 oz lbs 09/03/2023 BMI 32.76 kg/m2 09/03/2023 Encounters Encounter Location Date Provider Diagnosis [facility] [address] [place] [phone] 09/03/2023 Spencer Hernandez Hereditary hemochromatosis E83.110 and History of adenomatous polyp of colon Z86.010 Assessments Encounter Date Diagnosis (ICD Code) Assessment Notes Treatment Notes Treatment Clinical Notes Section Notes 09/03/2023 Hereditary hemochromatosis (ICD-10 - E83.110) Overall, [...] keep you advised of his progress.. 09/03/2023 History of adenomatous polyp of colon [...] Treatment Pending Test Test Name Order Date ALPHA-FETOPROTEIN,TUMOR MARKER 4 Liver Fibrosis Pnl 09/03/2023 US abdomen comp w elastography 4 Next Appt Details Follow Up: 1 Year, Reason: Progress Notes * JOSE CANASDOB:[birth year] (68 yo M)Acc No.[id number]:09/03/2023 Progress Notes Patient:?JOSE CANAS Provider:?Spencer Hernandez MD :1955???Age:68 Y???Sex:Male Wiliam e:09/03/2023 Address:[address] [place], [place] [id number] Pcp:ESTEBAN PORTER Subjective: * Chief Complaints: * ???Patient presents today fo r hemochromatosis * HPI: ???incontinence:? I saw Jose in the office today for evaluation of his underlying history of hereditary hemachromatosis. ?I last saw Jose December 2022, at which time he underwent a negative followup screening colonoscopy. He presently feels very well. He enjoys a good appetite, without any significant heartburn or dysphagia. His bowel movements are regular, without any hematochezia nor melena. He denies abdominal pain, jaundice, nor weight loss. ?He does continue having phlebotomies every 3 months in regard to the underlying hemachromatosis. His most recent iron studies as of March 2023 revealed an iron of 153, iron saturation of 63%, and a ferritin of only 53. His most recent ultrasound from July 2022 was negative for any sign of liver mass nor signs of liver disease ?Labs from this past June revealed a normal liver profile and normal CBC with platelet count. * ROS:?General/Constitutional:?Change in appetite?denies.?Chills?denies.?Fatigue?denies.?Ophthalmologic:?Patient denies? Negative..?ENT:?Patient denies?Negative..?Respiratory:?Patient denies?No coughing/hemoptysis..?Cardiovascular:?Patient denies? No chest pain/orthopnea..?Gastrointestinal:?Comments?See HPI for details.?Genitourinary:?Patient denies? No dysuria/hematuria..?Musculoskeletal:?Patient denies? No specific arthralgias/myalgias..?Skin:?Patient denies?No rash/pruritus..?Neurologic:?Patient denies? No headaches/seizures..?Psychiatric:?Patient denies?Negative..? * Medical History:? * Surgical History:?Vasectomy Hernia surgery x 2 * Hospitalization/Major Diagno stic Procedure:?No Hospitalization History. * Family History:?Father: dece ased, Esophageal cancer.?Mother: .?Daughter(s): Two Daughters--One was diagnosised with hemochromatosis and the other is a carrier..? Denies family hx of colon cancer, colon polyps or liver ds. Daughter has hemochromatosis. * Social History:?Tobacco Use:?Tobacco Use/Smoking?Are you a: nonsmoker.?Drugs/Alcohol:?Alcohol Screen?Points: 4, Interpretation: Positive.?Miscellaneous:?Marital status: . 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 ???Nonsmoker; occasional alcohol--5 beers on a w/e over the summer, minimal over the winter. * Medications:?TakingSimvastat in hydroCHLOROthiazide Lisinopril Viagra Medication List reviewed and reconciled with the patientTaking Simvastatin Taking hydroCHLOROthiazide Taking Lisinopril Taking Viagra Medication List reviewed and reconciled with the patient * Allergies:?N.K.D.A.yes[Aller gies Verified] Objective: * Vitals:?Wt: 220 lb 4 oz, Ht: 68.75 in, BMI:32.76 Index, BP: 000/00 mm Hg, Temp: 97.5. * Examination: ???General Examination: ?GENERAL APPEARANCE:?pleasant, well nourished, well developed, in no acute distress.?EYES:?sclera non-icteric.?ORAL CAVITY:?mucosa moist.?NECK/THYROID:?no cervical lymphadenopathy, neck supple.?SKIN:?nonjaundiced, no spider angiomata..?HEART:?S1, S2 normal.?LUNGS:?clear to auscultation bilaterally.?ABDOMEN:?normal bowel sounds, no guarding or rigidity, no hepatosplenomegaly, no masses palpable, soft, nontender, nondistended..?EXTREMITIES:?no edema.?NEUROLOGIC:?alert and oriented.? Assessment: * Assessment: 1.?Hereditary hemochromatosi s - E83.110 (Primary)?2.?History of adenomatous polyp of colon - Z86.010? Overall, Jose appears fadumo te well. We did review his negative colonoscopy [...] to keep you advised of his progress.. Plan: * Treatment: * * Procedure Codes:?3017F COLOR ECTAL CA SCREEN DOC [id number] TOBACCO [id number] BP SCR NOT PRFRM REC REASON NOS * Preventive Medicine:? ??Counseling:?Care goal follow-up plan:?Above Normal BMI Follow-up?Giving encouragement to exercise,?BMI management provided?Yes.? * Follow Up:?1 Year * * Sign off status: Completed true * Provider:?Spencer Hernandez MD Date:? 024 Generated for Daniel bullard/Avila/Romariosmitting on:?08/05/2024 09:38 AM EDT History and Physical Notes * HPI (History of Present Illness) Category Sub-Category Detail Notes Category Not es incontinence I saw Jose in the office today for evaluation of his underlying history of hereditary hemachromatosis. I last saw Jose December 2022, at which time he underwent a negative followup screening colonoscopy. He presently feels very well. He enjoys a good appetite, without any significant heartburn or dysphagia. His bowel movements are regular, without any hematochezia nor melena. He denies abdominal pain, jaundice, nor weight loss. He does continue having phlebotomies every 3 months in regard to the underlying hemachromatosis. His most recent iron studies as of March 2023 revealed an iron of 153, iron saturation of 63%, and a ferritin of only 53. His most recent ultrasound from July 2022 was negative for any sign of liver mass nor signs of liver disease Labs from this past June revealed a normal liver profile and normal CBC with platelet count. Examination Category Sub-Category Detail Notes Category Not es General Examination GENERAL APPEARANCE: pleasant , well [...]
== END 2024-08-05 09:05 | disposition home or self-care (01) ==
LOC: HO.BBR 09:04
PROVIDERS: PCP Nurse Practitioner Family; Visit Provider Internal Medicine
DX: Z13.89 Encounter for screening for other disorder (principal)

== ENCOUNTER 2024-08-30 10:58 | Outpatient (REF) | payer OTHER, SELFPAY ==
[2024-08-30 14:23] LABS: Prostate Specific Antigen Scr 1.71 ng/mL (<0.05-4.0)
== END 2024-08-30 10:59 | disposition home or self-care (01) ==
LOC: HO.HMGCLDS 10:58
PROVIDERS: PCP Nurse Practitioner Family; Visit Provider Nurse Practitioner Family
DX: Z00.00 Encounter for general adult medical examination without abnormal findings (principal); Z23 Encounter for immunization; Z12.5 Encounter for screening for malignant neoplasm of prostate
CPT/HCPCS: 36415; 84153; 90471; 90677; 96127

== ENCOUNTER 2024-08-30 10:58 | Outpatient (AMB) | payer OTHER, SELFPAY ==
[2024-08-30 11:02] VITALS: BP 110/74; PULSE 62; O2SAT 99; BMI 32.6
--- NOTE | 2024-08-30 11:02 | A.OFFPC_ITS ---
Vital Signs 08/30/24 11:02 Height 5 ft 8.75 in Weight 219 lb BMI 32.6 BP 110/74 Blood Pressure Location Lt brachial Position Sitting Pulse 62 Pulse Source Pulse Oximeter Pulse Oximetry (%) 99 Oxygen Delivery Method Room Air Intake Visit Reasons: Annual PE Company Laborer Required: No Accompanied by: Self / Same As Patient Allergies No Known Allergies Allergy (Verified 08/30/24 11:02) Tobacco use date assessed: 08/30/24 Fall risk assessment: No Falls in past year Last assessed Fall Risk: 08/30/24 Dental Screening Dental Screen Date: 08/30/24 Did you have a dental visit in the last 12 months?: Yes Did you have a dental problem in the last 6 months where you did not have access to dental care?: No Was dental information given to patient?: Patient has dentist HPI Annual PE HPI Details History of Present Illness The patient is a 69-year-old male presenting for a follow-up visit for a physical examination and health maintenance. His medical history includes hematomatosis, for which he receives regular care from a showplace manager and undergoes periodic blood draws. He adheres to a regimen of health maintenance screenings, including those for colorectal cancer, which are current. Pt sees a hazmat technician Recently, the patient initiated weight management changes, including dietary portion control and increased exercise, to which he attributes recent weight loss. He denies experiencing typical symptoms associated with his intestinal condition or any new systemic symptoms. A digital rectal examination during this visit noted a slightly enlarged prostate, though he reports no urinary symptoms. The patient denies any psychological distress or acute systemic symptoms such as fever and chills. Health Maintenance - Routine colon cancer screening: Up to date - Blood draws for hematomatosis manageme nt: Regularly performed - Weight management through diet control and increased exercise Social History - Exercises more frequently with improve d weather - Watching portion sizes for weight loss Review of Systems - Gastrointestinal: Denies abdominal aurora n, blood in stool, constipation, diarrhea - Cardiovascular/Respiratory: Denies lennox st pain, shortness of breath - General: Denies fevers, chills - Urinary: Denies any urinary issues - Psychiatric: Denies suicidal or homici iam ideation Physical Exam General: Cooperative, healthy appearing, comfortable, no acute distress and well developed, obese Orientation: Patient oriented x3 Limitations: No limitations Head: Normal to inspection Ears: Hearing grossly normal bilaterally Nose: Normal external nose present Face and sinus: Normal facial exam Eyes: Appearance normal, both eyes and all related structures Neck: Normal visual inspection and Yes full ROM Respiratory: Normal respiratory effort and able to speak in complete sentences. Clear to auscultation bilaterally Cardiovascular: Regular rate and rhythm. Normal S1 and S2 GI: Normal to inspection. Soft to palpation and nontender. : Digital rectal exam did feel a little bit enlarged, slightly enlarged Skin: No rashes or lesions noted Neuro: Patient oriented x3 Extremities: Normal to inspection Results - Labs: PSA pending Plan The physical examination during this visit identified slight prostate enlargement, which is being further evaluated with a PSA test today. Ongoing gastrointestinal care for hematomatosis through regular showplace manager visits and blood tests remains integral in the management. The patient?s proactive approach to weight control through portion management and enhanced exercise is acknowledged, with no immediate intervention required in this area. Colon screening remains current, supporting overall preventive health strategies. Discussion Notes Today, I discussed my observations from the physical exam, noting the slight pr ostate enlargement and the necessity of conducting a PSA test to further evaluate this finding. I reiterated the importance of routine follow-ups with a showplace manager for hematomatosis management and encouraged the patient to maintain his current weight management practices. I outlined no changes in the regular gastroenterology or preventive health maintenance schedule, commending his compliance with health-promoting lifestyle adjustments. Patient Instructions - Undergo PSA test today for prostate ev aluation - Follow-up with showplace manager as u melina for hematomatosis - Maintain current weight management str ategies with diet and exercise - Continue routine preventive health scr eenings as advised [facility] Medical History Hx of Chris's palsy HTN (hypertension) Dyslipidemia Hemochromatosis Squamous cell carcinoma Surgical History Hx of colonoscopy (~2018) History of hernia surgery History of vasectomy Family History Father Cancer Mother HTN (hypertension) Sister No problems noted. Sister No problems noted. Daughter No problems noted. Daughter No problems noted. Daughter No problems noted. Social History Housing: House Alcohol intake: current Alcohol intake frequency: a few times a month Patient Tobacco Use Status: Never used Tobacco e-Cigarette/Vaping Use: Never Used Second Hand Smoke Exposure: No service: No Current occupational status: employed Current occupation: [employer] Current occupational exposures/hazards: No Cognitive needs: No Hearing needs: No Vision needs: No Questionnaire PHQ-9 Over the last 2 weeks, how often have you been bothered by any of the following problems? 1. Little interest or pleasure in doing things: not at all 2. Feeling down, depressed, or hopeless: not at all 3. Trouble falling or staying asleep, or sleeping too much: not at all 4. Feeling tired or having little energy: not at all 5. Poor appetite or overeating: not at all 6. Feeling bad about yourself - or that you are a failure or have let yourself or your family down: not at all 7. Trouble concentrating on things, such as reading the newspaper or watching television: not at all 8. Moving or speaking so slowly that other people could have noticed. Or the opposite - being so fidgety or restless that you have been moving around a lot more than usual: not at all 9. Thoughts that you would be better off or of hurting yourself in some way: not at all Total score: 0 Depression Screening Interpretation: Negative Depression Screening Done: Yes 79562 - PHQ-9 Billing: Yes Source: Developed by Drs. Spencer Mejias, Noy Charles, Dur Willis and colleagues, with an educational ronald from [employer]. Thrive Questionnaire Date Thrive assessed: 08/23/24 I am a: Patient What is your living situation today?: I have a steady place to live Within the past 12 months, did the food you bought not last and you didn't have the money to get more?: Never true Within the past 12 months, did you worry whether your food would run out before you got money to buy more?: Never true Do you have trouble paying for medicines?: No Do you have trouble getting transportation to medical appointments?: No Do you have trouble paying your heating and electricity bill?: No Do you have trouble taking care of your child, family member or friend?: No Do you have trouble with day-to-day activities such as bathing, preparing meals, shopping, managing finances, etc.?: No Are you currently unemployed and looking for a job?: No Are you interested in more education?: No Please select the resources that you would like help with: None Currently or been in a relationship where the following occur: No concerns reported THRIVE Score: 0 AUDIT C Alcohol Use Questionnaire (AUDIT-C) 1. How often do you have a drink containing alcohol?: 2-3 times a week 2. How many drinks containing alcohol do you have on a typical day when you are drinking?: 1 or 2 3. How often do you have six or more drinks on one occasion?: Never Total Score: 3 Score Reviewed/Action Taken: Yes ANTHONY-7 AMB Questionnaire ANTHONY-7 Date ANTHONY - 7 assessed: 08/30/24 Feeling nervous, anxious, or on edge: 0 = Not at all Not being able to stop or control worryin = Not at all Worrying too much about different things: 0 = Not at all Trouble relaxin = Not at all Being so restless that it is hard to sit still: 0 = Not at all Becoming easily annoyed or irritable: 0 = Not at all Feeling afraid as if something awful might happen: 0 = Not at all Total ANTHONY-7 score (0-4 normal; 5-9 mild; 10-14 moderate; 15-21 severe): 0 Source: Developed by Drs. Spencer Mejias, Noy Charles, Dru Willis and colleagues, with an educational ronald from [employer]. ANTHONY-7 Assessment Billing ANTHONY-7 Assessment Tool: ANTHONY-7 Assessment 10099 Physical exam (Primary Care) Vital Signs: Last Vital Signs Pulse 62 08/30/24 11:02 BP 110/74 08/30/24 11:02 Pulse Ox 99 08/30/24 11:02 Oxygen Delivery Method Room Air 08/30/24 11:02 BMI result Body Mass Index 32.6 Tobacco/Smoking Status: Tobacco use Status Tobacco use date assessed 08/30/24 08/30/24 11:04 Patient Tobacco Use Status Never used Tobacco 08/30/24 11:04 e-Cigarette/Vaping Use Never Used 08/30/24 11:04 PHQ-9: PHQ-9 Score PHQ-9: Total score 0 08/30/24 11:38 Depression Screening Interpretation: Negative Thrive Assessment: Date of Thrive Assessment Date Thrive assessed 08/23/24 08/30/24 11:04 Currently or been in a relationship where the following occur: No concerns reported Coding Level of Care Code Est Pt Prev Care >65y(54939) Diagnoses Screening PSA (prostate specific antigen) Z12.5 Physical exam Z00.00 Additional Codes ANTHONY-7 Assessment Billing - ANTHONY-7 Assessment Tool: ANTHONY-7 Assessment 57270 ([id number]) PHQ-9 - 96795 - PHQ-9 Billing: Yes ([id number]) Assessment & Plan Assessment & Plan (1) Screening PSA (prostate specific antigen): Code(s): Z12.5 - Encounter for screening for malignant neoplasm of prostate Category: Medical (2) Physical exam: Code(s): Z00.00 - Encounter for general adult medical examination without abnormal findings Category: Medical Plan . Orders: Orders Prostate Specific Antigen Scr Today Z12.5 - Encounter for screening for malignant neoplasm of prostate Pneumococcal 20 Immunization Today Z23 - Encounter for immunization Medications: New pneumoc 20-deepika conj-dip cr(PF) 0.5 mL IM ONCE 0.5 mL 0RF Z23 - Encounter for immunization
--- OUTSIDE RECORDS SUMMARY | 2024-08-30 12:38 | XMS_ITS ---
Author Organization [facility] Address [address] [place] [phone] Care Team Providers Care Wind Turbine Mechanical Engineer Name Role Phone ESTEBAN PORTER Primary Care Provider Spencer Gomez [phone] Allergies No Known Allergies REASON FOR VISIT [...] 09/03/2023 Encounters Encounter Location Date Provider Diagnosis [facility] [address] [place] [phone] 09/03/2023 Spencer Henrandez Hereditary hemochromatosis E83.110 and History of adenomatous [...] * JOSE CANASDOB:[birth year] (68 yo M)Acc No.[id number]:09/03/2023 Progress Notes Patient:?JOSE CANAS Provider:?Spencer Hernandez MD :1955???Age:68 Y???Sex:Male Wiliam e:09/03/2023 Address:[address] [place], [place] [phone] Pcp:ESTEBAN PORTER Subjective: * Chief Complaints: * [...] Screen?Points: 4, Interpretation: Positive.?Miscellaneous:?Marital status: . 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 ???Nonsmoker; occasional alcohol--5 beers on a [...] Procedure Codes:?3017F COLOR ECTAL CA SCREEN DOC [id number] TOBACCO NON-CYVNW7525 BP SCR NOT PRFRM REC REASON NOS * Preventive Medicine:? ??Counseling:?Care goal follow-up plan:?Above Normal BMI Follow-up?Giving encouragement to exercise,?BMI management provided?Yes.? * Follow Up:?1 Year * * Sign off status: Completed true * Provider:?Spencer Hernandez MD Date:? 024 Generated for Daniel bullard/Avila/Romariosmitting on:?08/30/2024 12:38 PM EDT History and Physical Notes * HPI [...]
--- OUTSIDE RECORDS SUMMARY | 2024-08-30 12:39 | XMS_ITS | Patient Health Record ---
Author Organization [facility] Address [address] [place] [address] Care Team Providers Care Shaker Flatwork Name Role Phone ESTEBAN DUMAS Primary Care Provider Spencer Gomez [phone] Allergies No Known Allergies Results Component Value Reference Range Notes US abdomen comp w elastograp hy (Not yet reviewed by provider) Interpretation: Performing Lab: Notes/Report: [address] [address] Ultrasound Report Signed Patient: Jose Canas MR#: [id number] : 1955 Acct:[id number] Age/Sex: 68 / M ADM Date: 10/08/23 Loc: HO.US Attending Dr: Spencer Hernandez MD Ordering Physician: Spencer Hernandez MD Date of Service: 10/08/23 Procedure(s): US abdomen comp w elastography Accession Number(s): [id number] cc: Esteban Dumas [facility]-; Spencer Hernandez MD EXAMINATION: US COMPLETE ABDOMEN [...] in OV> 10/29/23 1439 DD/ 0839 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[employer]: [place] [address] Ultrasound Report Signed Patient: Jose Canas MR#: [id number] : 1955 Acct:[id number] Age/Sex: 68 / M ADM Date: 10/08/23 Loc: HO.US Attending Dr: Spencer Hernandez MD Ordering Physician: Spencer Hernandez MD Date of Service: 10/08/23 Procedure(s): US abdomen comp w elastography Accession Number(s): [id number] cc: Esteban Dumas [facility]; Spencer Hernandez MD EXAMINATION: US COMPLETE [...] in OV> 10/29/23 1439 DD/ 0839 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[employer]ocks: BETHANY IRON PROFILE Reviewed date:10/27/2023 10:49:29 PM Interpretation: Performing Lab:[facility], [address] [place] [phone] Notes/Report: Iron 139 45-160 mcg/dL Total Iron Binding Capacity 266 228-428 mcg/dL Percent Iron Saturation 52 15-50 % Unsaturated Iron Binding 127 Ferritin Reviewed date:10/28/2023 09:54:22 AM Interpretation: Performing Lab:[address] [phone] Notes/Report: Ferritin 28 20-250 ng/mL Therapeutic Phlebotomy Reviewed date:10/28/2023 09:54:44 AM Interpretation: Performing Lab:[facility], [address] [place] [phone] Notes/Report: THER/HGB 15.1 14.0-18.0 g/dL THER/HCT TNP 42.0-52.0 % Therapeutic Phlebotomy Phlebotomy Performed 500 mls drawn on 10/27/23. Please note that a copy of this report has been sent to the Primary Care Physician, the ordering physician and any physician designated by patient request. Alpha Fetoprotein Reviewed date:11/22/2023 06:04:11 PM Interpretation: Performing Lab:[facility], [address] [place] [phone] Notes/Report: Alpha Fetoprotein 4.1 <6.1 ng/mL This test was performed using the Pam Reina chemiluminescent method. Values obtained from different assay methods cannot be used interchangeably. AFP levels, regardless of value, should not be interpreted as absolute evidence of the presence or absence of disease. THIS TEST WAS PERFORMED AT: [employer] [address] [place] [phone] KAY CHIRINOS MD Liver Fibrosis Pnl Reviewed date:11/22/2023 06:04:24 PM Interpretation: Performing Lab:[facility], [address] [place] [phone] Notes/Report: Liver Fibrosis Score 0.14 Liver Fibrosis [...] a>0.62 and a<=1.00 : A3 (severe activity) OYC-Jogdi-8-Macroglobul in 116 106-279 mg/dL FIB-Haptoglobin 143 43-212 mg/dL FIB-Apolipoprotein A1 151 94-176 mg/dL FIB-Total Bilirubin 0.5 0.2-1.2 mg/dL FIB-GGT 42 3-70 U/L FIB-ALT 22 9-46 U/L Reference ID [id number] Footnote SEE NOTE The reliability of results [...] The performance characteristics have been determined by [facility]. It has not been cleared or approved by the U.S. Food and Drug Administration. Performance characteristics refer to the analytical performance of the test. [employer], the associated logo, Nobl and all associated [employer] espinoza are the registered trademarks of [employer]. All third green party espinoza - (R) and (TM) - are the property of their respective owners. (C) 9321-2135 [employer]. All rights reserved. THIS TEST WAS PERFORMED AT: [employer] [facility] [place] [address] [place] [address] HAKEEM VALDEZ MD,PHD,ANDREW Therapeutic Phlebotomy Reviewed date:02/05/2024 12:29:33 PM Interpretation: Performing Lab:[facility], [address] [place] [phone] Notes/Report: THER/HGB 16.1 14.0-18.0 g/dL THER/HCT TNP 42.0-52.0 % Therapeutic Phlebotomy Phlebotomy Performed 500 mls drawn on 02/04/24. Please note that a copy of this report has been sent to the Primary Care Physician, the ordering physician and any physician designated by patient request. IRON PROFILE Reviewed date:05/06/2024 09:33:49 PM Interpretation: Performing Lab:[facility], [address] [place] [phone] Notes/Report: Iron 83 45-160 mcg/dL Total Iron Binding Capacity 254 228-428 mcg/dL Percent Iron Saturation 33 15-50 % Unsaturated Iron Binding 171 Ferritin Reviewed date:05/06/2024 09:33:37 PM Interpretation: Performing Lab:[facility], [address] [place] [phone] Notes/Report: Ferritin 26 20-250 ng/mL Therapeutic Phlebotomy Reviewed date:05/06/2024 09:33:20 PM Interpretation: Performing Lab:[facility], [address] [place] [phone] Notes/Report: THER/HGB 14.2 14.0-18.0 g/dL THER/HCT TNP 42.0-52.0 % Therapeutic Phlebotomy Phlebotomy Performed 500 mls drawn on 05/05/24. Please note that a copy of this report has been sent to the Primary Care Physician, the ordering physician and any physician designated by patient request. Therapeutic Phlebotomy Reviewed date:08/05/2024 12:04:49 PM Interpretation: Performing Lab:[facility], [address] [place] [phone] Notes/Report: THER/HGB 14.5 14.0-18.0 g/dL THER/HCT TNP 42.0-52.0 % Therapeutic Phlebotomy Phlebotomy Performed 500 mls drawn on 08/05/24. Please note that a copy of this [...] Problem Status W/U Status Risk Notes Problem 209727093 Encounter for screening for malignant neoplasm of colon (Z12.11) Active confirmed Problem 191254077 History of adenomatous polyp of colon (Z86.010) Active confirmed Problem 07888807 Hereditary hemochromatosis (E83.110) Active confirmed Vital Signs Temperature 97.5 degrees Fahrenheit 09/03/2023 Blood pressure diastolic 00 mm Hg 09/03/2023 Height 68.75 in 09/03/2023 Blood pressure systolic 000 mm Hg 09/03/2023 Weight 220 lb 4 oz lbs 09/03/2023 BMI 32.76 kg/m2 09/03/2023 Encounters Encounter Location Date Provider Diagnosis [facility] [address] [place] [address] 09/03/2023 Spencer Hernandez Hereditary hemochromatosis E83.110 and [...] Insured Coverage Start Date Coverage End Date [facility] [address] [address] [place] [address] [id number] JOSE CANAS Self - patient is the [...] Q 3 months in approx 2017 Denies NM,DM,CVA,Lung disease,renal dise ase Hx of Chris's palsy-recovered Negative screening colonoscopy in 2022 Surgical History Surgery Date(Month/Year) Vasectomy Hernia surgery x 2
== END 2024-08-30 12:41 | disposition home or self-care (01) ==
LOC: HO.HMCC 10:59
PROVIDERS: PCP Nurse Practitioner Family; Visit Provider Nurse Practitioner Family
DX: Z12.5 Encounter for screening for malignant neoplasm of prostate (principal); Z00.00 Encounter for general adult medical examination without abnormal findings; Z23 Encounter for immunization

== ENCOUNTER 2024-11-16 10:59 | Outpatient (REF) | payer OTHER, SELFPAY ==
[2024-11-16 12:10] LABS: Iron 69 mcg/dL (45-160); Percent Iron Saturation 26 % (15-50); Total Iron Binding Capacity 263 mcg/dL (228-428); Unsaturated Iron Binding 194 ug/dL
--- OUTSIDE RECORDS SUMMARY | 2024-11-16 12:16 | XMS_ITS | Patient Health Record ---
Author Organization [facility] Address [address] [place] [address] Care Team Providers Care Snowblower Mechanic Name Role Phone IHSANRIRI ESTEBAN Primary Care Provider Spencer Gomez [phone] Allergies No Known Allergies Results Component Value Reference Range Notes Therapeutic Phlebotomy Reviewed date:02/05/2024 12:29:33 PM Interpretation: Performing Lab:[facility], [address] [place] [phone] Notes/Report: THER/HGB 16.1 14.0-18.0 g/dL THER/HCT TNP 42.0-52.0 % Therapeutic Phlebotomy Phlebotomy Performed 500 mls drawn on 02/04/24. Please note that a copy of this report has been sent to the Primary Care Physician, the ordering physician and any physician designated by patient request. IRON PROFILE Reviewed date:05/06/2024 09:33:49 PM Interpretation: Performing Lab:[facility], [address] [place] [phone] Notes/Report: Iron 83 45-160 mcg/dL Total Iron Binding Capacity 254 228-428 mcg/dL Percent Iron Saturation 33 15-50 % Unsaturated Iron Binding 171 Ferritin Reviewed date:05/06/2024 09:33:37 PM Interpretation: Performing Lab:[facility], [address] [place] [phone] Notes/Report: Ferritin 26 20-250 ng/mL Therapeutic Phlebotomy Reviewed date:05/06/2024 09:33:20 PM Interpretation: Performing Lab:[facility], [address] [place] [phone] Notes/Report: THER/HGB 14.2 14.0-18.0 g/dL THER/HCT TNP 42.0-52.0 % Therapeutic Phlebotomy Phlebotomy Performed 500 mls drawn on 05/05/24. Please note that a copy of this report has been sent to the Primary Care Physician, the ordering physician and any physician designated by patient request. Therapeutic Phlebotomy Reviewed date:08/05/2024 12:04:49 PM Interpretation: Performing Lab:[facility], [address] [place] [address] Notes/Report: THER/HGB 14.5 14.0-18.0 g/dL THER/HCT TNP [...] Problem Status W/U Status Risk Notes Problem [id number] Encounter for screening for malignant neoplasm of colon (Z12.11) Active confirmed Problem 346879448 History of adenomatous polyp of colon (Z86.010) Active confirmed Problem 53824134 Hereditary hemochromatosis (E83.110) Active confirmed Plan Of Treatment Pending Test Test Name [...] Date COLONOSCOPY 01/08/2013 COLONOSCOPY 01/13/2018 COLONOSCOPY 07/05/2022 Next Appt Details Provider Name:Spencer Hernandez , 12/22/2024 03:40:00 PM, [address] [facility], [address], [place], [address], Insurance Providers Payer Name Payer Address Payer Phone Subscriber Number Group Number Insured Name Patient Relationship to Insured Coverage Start Date Coverage End Date [facility] [address] [address] [place] [address] [phone] [id number] JOSE CANAS Self - patient is the [...] schedule; changed to Q 3 months in 2017 Denies AL,DM,CVA,Lung disease,renal dise ase Hx of Chris's palsy-recovered Negative screening colonoscopy in 2022 Surgical History Surgery Date(Month/Year) Vasectomy Hernia surgery x 2
[2024-11-16 12:25] LABS: Ferritin 22 ng/mL (20-250)
== END 2024-11-16 11:00 | disposition home or self-care (01) ==
LOC: HO.BBR 10:59
PROVIDERS: PCP Nurse Practitioner Family; Visit Provider Internal Medicine
DX: E83.110 Hereditary hemochromatosis (principal)
CPT/HCPCS: 36415; 82728; 83540

== ENCOUNTER 2025-02-16 08:01 | Outpatient (REF) | payer OTHER, SELFPAY ==
--- OUTSIDE RECORDS SUMMARY | 2025-02-16 08:04 | XMS_ITS | Patient Health Record ---
Author Organization [facility] Address [address] [place] [address] Care Team Providers Care Spa Associate Name Role Phone ESTEBAN PORTER Primary Care Provider Spencer Gomez [phone] Allergies No Known Allergies Results Component Value Reference Range Notes IRON PROFILE Reviewed date:05/06/2024 09:33:49 PM Interpretation: Performing Lab:[facility], [address] [place] [phone] Notes/Report: Iron 83 45-160 mcg/dL Total Iron Binding Capacity 254 228-428 mcg/dL Percent Iron Saturation 33 15-50 % Unsaturated Iron Binding 171 Ferritin Reviewed date:05/06/2024 09:33:37 PM Interpretation: Performing Lab:[facility], [address] [place] [phone] Notes/Report: Ferritin 26 20-250 ng/mL Therapeutic Phlebotomy Reviewed date:05/06/2024 09:33:20 PM Interpretation: Performing Lab:[facility], [address] [place] [phone] Notes/Report: THER/HGB 14.2 14.0-18.0 g/dL THER/HCT TNP 42.0-52.0 % Therapeutic Phlebotomy Phlebotomy Performed 500 mls drawn on 05/05/24. Please note that a copy of this report has been sent to the Primary Care Physician, the ordering physician and any physician designated by patient request. Therapeutic Phlebotomy Reviewed date:08/05/2024 12:04:49 PM Interpretation: Performing Lab:[facility], [address] [place] [phone] Notes/Report: THER/HGB 14.5 14.0-18.0 g/dL THER/HCT TNP 42.0-52.0 % Therapeutic Phlebotomy Phlebotomy Performed 500 mls drawn on 08/05/24. Please note that a copy of this report has been sent to the Primary Care Physician, the ordering physician and any physician designated by patient request. IRON PROFILE Reviewed date:11/21/2024 07:53:12 PM Interpretation: Performing Lab:[facility], [address] [place] [phone] Notes/Report: Iron 69 45-160 mcg/dL Total Iron Binding Capacity 263 228-428 mcg/dL Percent Iron Saturation 26 15-50 % Unsaturated Iron Binding 194 Ferritin Reviewed date:11/21/2024 07:52:57 PM Interpretation: Performing Lab:[facility], [address] [place] [phone] Notes/Report: Ferritin 22 20-250 ng/mL Therapeutic Phlebotomy Reviewed date:11/21/2024 07:52:44 PM Interpretation: Performing Lab:[facility], [address] [place] [phone] Notes/Report: THER/HGB 15.5 14.0-18.0 g/dL THER/HCT TNP 42.0-52.0 % Therapeutic Phlebotomy Phlebotomy Performed 500 mls drawn on 11/16/24. Please note that a copy of this report has been sent to the Primary Care Physician, the ordering physician and any physician designated by patient request. Reason For Referral No Information Medications Medication SIG (Take, Route, Fr equency, Duration) Notes Start Date End Date Status Simvastatin Active Viagra Active Lisinopril Active hydroCHLOROthiazide Active Immunizations Vaccine Route Administration Date Status Comme nts Influenza Unknown 03/15/2020 Administered Influenza Unknown 03/13/2022 Administered Influenza Unknown 03/18/2023 Administered Influenza Unknown 02/10/2024 Administered Social History AUDIT-C (Standard) Question Answer Notes Did you have a drink contain ing alcohol in the past year? Yes How often did you have a dri nk containing alcohol in the past year? 2 to 3 times a week (3 points) How many drinks did you have on a typical day when you were drinking in the past year? 1 or 2 drinks (0 point) How often did you have six o r more drinks on one occasion in the past year? Never (0 point) Points 3 Interpretation Negative Section Notes: Nonsmoker; occasional alcoho l--5 beers on a w/e over the summer, minimal over winter Nonsmoker; occasional alcoho l--5 beers on a w/e over the summer, minimal over the winter Nonsmoker; occasional alcoho l--5 beers on a w/e over the summer, minimal over the winter Nonsmoker; occasional alcoho l--5 beers on a w/e over the summer, minimal over the winter Nonsmoker; occasional alcoho l--5 beers on a w/e over the summer, minimal over the winter Nonsmoker; occasional alcoho l--5 beers on a w/e over the summer, minimal over the winter Nonsmoker; occasional alcoho l- 5 beers on a w/e over the summer, minimal over the winter Problems Problem Type SNOMED Code ICD Code Onset Dates Problem Status W/U Status Risk Notes Problem Screening for malignant neoplasm of colon (627555740) Encounter for screening for malignant neoplasm of colon (Z12.11) Active confirmed Problem History of adenomatous polyp of colon (872678911) History of adenomatous polyp of colon (Z86.010) Active confirmed Problem Hereditary hemochromatosis (95483298) Hereditary hemochromatosis (E83.110) Active confirmed Vital Signs Temperature 98.6 degrees Fahrenheit 12/22/2024 Blood pressure diastolic 01 mm Hg 12/22/2024 Height 68.75 in 12/22/2024 Blood pressure systolic 001 mm Hg 12/22/2024 Weight 221.6 lbs 12/22/2024 BMI 32.96 kg/m2 12/22/2024 Encounters Encounter Location Date Provider Diagnosis [facility] [address] [place] [phone] 12/22/2024 Spencer Hernandez Hereditary hemochromatosis E83.110 ; History of adenomatous polyp of colon Z86.010 and Encounter for screening for malignant neoplasm of colon Z12.11 [facility] [address] [place] [phone] 12/22/2024 Spencer Hernandez Assessments Encounter Date Diagnosis (ICD Code) Assessment Notes Treatment Notes Treatment Clinical Notes Section Notes 12/22/2024 Hereditary hemochromatosis (ICD-10 - E83.110) Continue the phlebotomy every 3 months Overall, Jose appears quite well. His hemochromatosis has remained stable on his current phlebotomy regimen with normal iron studies. He does not show any signs nor have any symptoms of progressive liver disease. I did advise him to continue the current phlebotomy schedule at every 3 months. He will continue to have iron studies every 6 months. I shall schedule him for a follow-up liver ultrasound and alpha-fetoprotein level. We did review that should be done yearly as a screening for hepatoma given the underlying hemochromatosis. We also reviewed that he will be due for a colonoscopy in 2027 for further screening purposes. I will plan to see him in 1 year for a follow-up visit but did advise him to contact me sooner if he has any problems or questions I can be of assistance with. Jose was comfortable with this plan. Thank you again for allowing me to participate in Jose's care. I shall continue to keep you advised of his progress. 12/22/2024 History of adenomatous polyp of colon (ICD-10 - Z86.010) Overall, Jose appears quite well. His hemochromatosis has remained stable on his current phlebotomy regimen with normal iron studies. He does not show any signs nor have any symptoms of progressive liver disease. I did advise him to continue the current phlebotomy schedule at every 3 months. He will continue to have iron studies every 6 months. I shall schedule him for a follow-up liver ultrasound and alpha-fetoprotein level. We did review that should be done yearly as a screening for hepatoma given the underlying hemochromatosis. We also reviewed that he will be due for a colonoscopy in 2027 for further screening purposes. I will plan to see him in 1 year for a follow-up visit but did advise him to contact me sooner if he has any problems or questions I can be of assistance with. Jose was comfortable with this plan. Thank you again for allowing me to participate in Jose's care. I shall continue to keep you advised of his progress. 12/22/2024 Encounter for screening for malignant neoplasm of colon (ICD-10 - Z12.11) Repeat colonoscopy in 2027 Overall, Jose appears quite well. His hemochromatosis has remained stable on his current phlebotomy regimen with normal iron studies. He does not show any signs nor have any symptoms of progressive liver disease. I did advise him to continue the current phlebotomy schedule at every 3 months. He will continue to have iron studies every 6 months. I shall schedule him for a follow-up liver ultrasound and alpha-fetoprotein level. We did review that should be done yearly as a screening for hepatoma given the underlying hemochromatosis. We also reviewed that he will be due for a colonoscopy in 2027 for further screening purposes. I will plan to see him in 1 year for a follow-up visit but did advise him to contact me sooner if he has any problems or questions I can be of assistance with. Jose was comfortable with this plan. Thank you again for allowing me to participate in Jose's care. I shall continue to keep you advised of his progress. Plan Of Treatment Pending Test Test Name Order Date LIVER PROFILE 07/05/2022 LIVER PROFILE 01/08/2013 LIVER PROFILE 05/10/2020 IRON + IBC (FE) 12/05/2013 FERRITIN 12/05/2013 ALPHA-FETOPROTEIN,TUMOR MARKER 4 ALPHA-FETOPROTEIN,TUMOR MARKER 8 ALPHA-FETOPROTEIN,TUMOR MARKER 5 US ABD 05/10/2020 US ABDOMEN COMP WITH ELASTOGRAPHY 2022 Alpha Fetoprotein 07/05/2022 Liver Fibrosis Pnl 09/03/2023 Liver Fibrosis Pnl 07/05/2022 US abdomen comp w elastography 4 US abdomen comp w elastography 4 US abdomen comp w elastography 5 Future Test Test Name Order Date COLONOSCOPY 01/08/2013 COLONOSCOPY 01/13/2018 COLONOSCOPY 07/05/2022 Insurance Providers Payer Name Payer Address Payer Phone Subscriber Number Group Number Insured Name Patient Relationship to Insured Coverage Start Date Coverage End Date [facility] [address] [address] [place] [address] [id number] JOSE CANAS Self - patient is the insured 3 MEDICARE OF [place] [address] [place] [address] [id number] JOSE CANAS Self - patient is the insured 2 Medical (General) History Medical History History ICD Code Colonoscopy 09/16/2007 with removal of a tubular adenoma; colonoscopy in 01/2013 1 small tubular adenoma removed, diverticulosis, internal hemorrhoids; colonoscopy in 01/2018 with a small tubular adenoma removed Hypertension Hyperlipidemia In 05/2007 Ferritin was 613 a nd Iron sat was nearly 100%--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
== END 2025-02-16 08:02 | disposition home or self-care (01) ==
LOC: HO.BBR 08:01
PROVIDERS: PCP Nurse Practitioner Family; Visit Provider Internal Medicine
DX: E83.110 Hereditary hemochromatosis (principal)
CPT/HCPCS: 36415; 82105

== ENCOUNTER 2025-02-17 08:54 | Outpatient (REF) | payer OTHER, SELFPAY ==
--- NOTE | ~2025-02-17 | US_ITS ---
EXAMINATION: US ABDOMEN COMPLETE WITH LIVER ELASTOGRAPHY HISTORY: hereditary hemochromatosis TECHNIQUE: Real-time grayscale ultrasound imaging of the abdomen was performed and images were reviewed. COMPARISON: Comparison is made with the prior examination dated 10/08/2023. FINDINGS: Liver: The right lobe of the liver measures 13.9 cm in size. The left lobe of the liver measures 8.7 cm in size. The liver demonstrates increased echotexture, consistent with steatosis. There is focal fatty sparing adjacent to the gallbladder. No focal mass or intrahepatic biliary ductal dilatation is identified. There is normal hepatopedal flow in the portal vein. Ultrasound elastography of the liver was performed with 10 separate measurements of the liver parenchyma with the patient in the supine position. Measurements were obtained approximately 2 cm below Devon's capsule and perpendicular to the capsule. The median shear wave velocity is 1.62 m/s (previously 1.62 m/s). The interquartile range/median (IQR/median) is 0.25. Gallbladder and biliary tree: The gallbladder is unremarkable, without evidence of calculi, wall thickening, or pericholecystic fluid. There is no sonographic Chi sign. The common bile duct is normal in caliber measuring 3 mm. Kidneys: The right kidney measures 10.0 cm in length. The left kidney measures 10.9 cm in length. The kidneys are unremarkable, without evidence of masses, hydronephrosis, or calculi. Pancreas: The pancreatic head, neck, and body are unremarkable. The pancreatic tail is obscured by bowel gas. Spleen: The spleen is normal in size and contour, measuring 10.8 cm in length. Abdominal aorta and inferior vena cava: The visualized portions of the abdominal aorta and inferior vena cava are normal in caliber. There is no free fluid in the abdomen. US/US abdomen comp w elastography IMPRESSION: Hepatic steatosis. The median shear wave velocity in the liver is 1.62 m/s, corresponding to a median liver stiffness of 7.8 kPa. The IQR/median value is 0.25. This is indicative of a quality data set. Findings are indicative of a low elastography value which rules out advanced chronic liver disease in asymptomatic patients. REFERENCE: Society of Radiologists in Ultrasound Liver Stiffness Thresholds (2020): LIVER STIFFNESS THRESHOLDS: *Shear wave velocity less than 1.3 m/s (Liver Stiffness equal or less than 5 kPa): High probability of being normal. *Shear wave velocity less than 1.7 m/s (Liver Stiffness less than 9 kPa): In the absence of other known clinical signs, rules out compensated advanced chronic liver disease. *Shear wave velocity between 1.7-2.1 m/s (Liver Stiffness 9-13 kPa): Suggestive of compensated advanced chronic liver disease but need further test for confirmation. *Shear wave velocity between 2.1-2.4 m/s (Liver Stiffness 13-17 kPa): Rules in compensated advanced chronic liver disease. *Shear wave velocity greater than 2.4 m/s (Liver Stiffness over 17 kPa): Suggestive of clinically significant portal hypertension. QUALITY OF DATA SET: *IQR/Median value equal or less than 0.30 implies a quality data set. *IQR/Median value over 0.30 implies a poor quality data set. SIGNIFICANT CHANGE FROM PRIOR EXAM: Significant change if liver stiffness measurement is 10% or greater from prior exam. OTHER CONSIDERATIONS: The stage of liver fibrosis may be overestimated in the setting of acute hepatitis, liver inflammation, elevated liver function tests, hepatic vascular congestion, obstructive cholestasis, non-fasting state, and infiltrative diseases such as amyloidosis and lymphoma. In some patients with NAFLD, the liver stiffness thresholds for compensated advanced chronic liver disease may be lower. In causes other than viral hepatitis and NAFLD, liver stiffness thresholds are not well established. Electronically signed by: Spencer Enamorado MD 02/17/2025 09:54 AM EDT
--- OUTSIDE RECORDS SUMMARY | 2025-02-17 09:37 | XMS_ITS | Patient Health Record ---
Author Organization [facility] Address [address] [place] [address] Care Team Providers Care Social Worker Delinquency Prevention Name Role Phone ESTEBAN PORTER Primary Care Provider Spencer Gomez [phone] Allergies No Known Allergies Results Component Value Reference Range Notes IRON PROFILE Reviewed date:05/06/2024 09:33:49 PM Interpretation: Performing Lab:[facility], [address] [place] [phone] Notes/Report: Iron 83 45-160 mcg/dL Total Iron Binding Capacity 254 228-428 mcg/dL Percent Iron Saturation 33 15-50 % Unsaturated Iron Binding 171 Ferritin Reviewed date:05/06/2024 09:33:37 PM Interpretation: Performing Lab:[facility], [address] [place] [phone] Notes/Report: Ferritin 26 20-250 ng/mL Therapeutic Phlebotomy Reviewed date:05/06/2024 09:33:20 PM Interpretation: Performing Lab:[facility], [address] [place] [phone] Notes/Report: THER/HGB 14.2 14.0-18.0 g/dL THER/HCT TNP 42.0-52.0 % Therapeutic Phlebotomy Phlebotomy Performed 500 mls drawn on 05/05/24. Please note that a copy of this report has been sent to the Primary Care Physician, the ordering physician and any physician designated by patient request. Therapeutic Phlebotomy Reviewed date:08/05/2024 12:04:49 PM Interpretation: Performing Lab:[facility] [address] [address] Notes/Report: THER/HGB 14.5 14.0-18.0 g/dL THER/HCT TNP 42.0-52.0 % Therapeutic Phlebotomy Phlebotomy Performed 500 mls drawn on 08/05/24. Please note that a copy of this report has been sent to the Primary Care Physician, the ordering physician and any physician designated by patient request. IRON PROFILE Reviewed date:11/21/2024 07:53:12 PM Interpretation: Performing Lab:[facility], [address] [place] [phone] Notes/Report: Iron 69 45-160 mcg/dL Total Iron Binding Capacity 263 228-428 mcg/dL Percent Iron Saturation 26 15-50 % Unsaturated Iron Binding 194 Ferritin Reviewed date:11/21/2024 07:52:57 PM Interpretation: Performing Lab:[address] [address] Notes/Report: Ferritin 22 20-250 ng/mL Therapeutic Phlebotomy Reviewed date:11/21/2024 07:52:44 PM Interpretation: Performing Lab:[facility], [address] [place] [phone] Notes/Report: THER/HGB 15.5 14.0-18.0 g/dL THER/HCT TNP 42.0-52.0 % Therapeutic Phlebotomy Phlebotomy Performed 500 mls drawn on 11/16/24. Please note that a copy of this report has been sent to the Primary Care Physician, the ordering physician and any physician designated by patient request. Therapeutic Phlebotomy (Not yet reviewed by provider) Interpretation: Performing Lab:[facility], [address] [place] [phone] Notes/Report: THER/HGB 14.6 14.0-18.0 g/dL THER/HCT TNP 42.0-52.0 % Therapeutic Phlebotomy Phlebotomy Performed 500 mls drawn on 02/16/25. Please note that a copy of this [...] Problem Screening for malignant neoplasm of colon (084822577) Encounter for screening for malignant neoplasm of colon (Z12.11) Active confirmed Problem History of adenomatous polyp of colon (564196396) History of adenomatous polyp of colon (Z86.010) Active confirmed Problem Hereditary hemochromatosis (56384145) Hereditary hemochromatosis (E83.110) Active confirmed Vital Signs Temperature 98.6 degrees Fahrenheit 12/22/2024 Blood pressure diastolic 01 mm Hg 12/22/2024 Height 68.75 in 12/22/2024 Blood pressure systolic 001 mm Hg 12/22/2024 Weight 221.6 lbs 12/22/2024 BMI 32.96 kg/m2 12/22/2024 Encounters Encounter Location Date Provider Diagnosis [facility] [address] [place] [address] 12/22/2024 Spencer Hernandez Hereditary hemochromatosis E83.110 ; History of adenomatous polyp of colon Z86.010 and Encounter for screening for malignant neoplasm of colon Z12.11 [facility] [address] [place] [address] 12/22/2024 Spencer Hernandez Assessments Encounter Date Diagnosis [...] FERRITIN 12/05/2013 ALPHA-FETOPROTEIN,TUMOR MARKER 8 ALPHA-FETOPROTEIN,TUMOR MARKER 5 ALPHA-FETOPROTEIN,TUMOR MARKER 4 US ABD 05/10/2020 US ABDOMEN COMP WITH ELASTOGRAPHY 2022 Alpha Fetoprotein 07/05/2022 Liver Fibrosis Pnl 09/03/2023 Liver Fibrosis Pnl 07/05/2022 US abdomen comp w elastography 4 US abdomen comp w elastography 4 US abdomen comp w elastography 5 Therapeutic Phlebotomy 02/16/2025 Future Test Test Name Order Date COLONOSCOPY 01/08/2013 COLONOSCOPY 01/13/2018 COLONOSCOPY 07/05/2022 Insurance Providers Payer Name Payer Address Payer Phone Subscriber Number Group Number Insured Name Patient Relationship to Insured Coverage Start Date Coverage End Date [facility] [address] [address] [place] [address] [phone] [id number] JOSE CANAS Self - patient is the insured 3 MEDICARE OF [place] [address] [place] [address] [id number] JOSE CANAS Self - patient is the [...] to Q 3 months in 2017 Denies DC,DM,CVA,Lung disease,renal dise ase Hx of Chris's palsy-recovered Negative screening colonoscopy in 2022 Surgical History Surgery Date(Month/Year) Hernia surgery x 2 Vasectomy
== END 2025-02-17 08:55 | disposition home or self-care (01) ==
LOC: HO.US 08:54
PROVIDERS: PCP Nurse Practitioner Family; Visit Provider Internal Medicine
DX: E83.110 Hereditary hemochromatosis (principal)
CPT/HCPCS: 76700; 76981

== ENCOUNTER → 2025-02-17 09:23 | Outpatient (BNV) | payer OTHER, SELFPAY | PROVIDERS: PCP Nurse Practitioner Family; Visit Provider Radiology Diagnostic Radiology | DX: E83.110 Hereditary hemochromatosis (principal); K76.0 Fatty (change of) liver, not elsewhere classified | CPT/HCPCS: 76700 ==

== ENCOUNTER 2025-03-04 06:15 | Outpatient (REF) | payer OTHER, SELFPAY ==
--- OUTSIDE RECORDS SUMMARY | 2025-03-04 06:19 | XMS_ITS | Patient Health Record ---
Author Organization [facility] Address [address] [place] [address] Care Team Providers Care Brake Machine Operator Name Role Phone ESTEBAN DUMAS Primary Care Provider Spencer Gomez [phone] Allergies No Known Allergies Results Component Value Reference Range Notes IRON PROFILE Reviewed date:05/06/2024 09:33:49 PM Interpretation: Performing Lab:[facility], [address] [place] [phone] Notes/Report: Iron 83 45-160 mcg/dL Total Iron Binding Capacity 254 228-428 mcg/dL Percent Iron Saturation 33 15-50 % Unsaturated Iron Binding 171 Ferritin Reviewed date:05/06/2024 09:33:37 PM Interpretation: Performing Lab:[facility], [address] [place] [phone] Notes/Report: Ferritin 26 20-250 ng/mL Therapeutic Phlebotomy Reviewed date:05/06/2024 09:33:20 PM Interpretation: Performing Lab:[facility], [address] [place] [phone] Notes/Report: THER/HGB 14.2 14.0-18.0 g/dL THER/HCT TNP 42.0-52.0 % Therapeutic Phlebotomy Phlebotomy Performed 500 mls drawn on 05/05/24. Please note that a copy of this report has been sent to the Primary Care Physician, the ordering physician and any physician designated by patient request. Therapeutic Phlebotomy Reviewed date:08/05/2024 12:04:49 PM Interpretation: Performing Lab:[facility] [address] [address] Notes/Report: THER/HGB 14.5 14.0-18.0 g/dL THER/HCT TNP 42.0-52.0 % Therapeutic Phlebotomy Phlebotomy Performed 500 mls drawn on 08/05/24. Please note that a copy of this report has been sent to the Primary Care Physician, the ordering physician and any physician designated by patient request. IRON PROFILE Reviewed date:11/21/2024 07:53:12 PM Interpretation: Performing Lab:[address] [phone] Notes/Report: Iron 69 45-160 mcg/dL Total Iron Binding Capacity 263 228-428 mcg/dL Percent Iron Saturation 26 15-50 % Unsaturated Iron Binding 194 Ferritin Reviewed date:11/21/2024 07:52:57 PM Interpretation: Performing Lab:[address] [phone] Notes/Report: Ferritin 22 20-250 ng/mL Therapeutic Phlebotomy Reviewed date:11/21/2024 07:52:44 PM Interpretation: Performing Lab:[facility], [address] [place] [phone] Notes/Report: THER/HGB 15.5 14.0-18.0 g/dL THER/HCT TNP 42.0-52.0 % Therapeutic Phlebotomy Phlebotomy Performed 500 mls drawn on 11/16/24. Please note that a copy of this report has been sent to the Primary Care Physician, the ordering physician and any physician designated by patient request. Alpha Fetoprotein Reviewed date:02/17/2025 03:04:43 PM Interpretation: Performing Lab:[address] [address] Notes/Report: Alpha Fetoprotein 4.1 <6.1 ng/mL This test was performed using the [place] chemiluminescent method. Values obtained from different assay methods cannot be used interchangeably. AFP levels, regardless of value, should not be interpreted as absolute evidence of the presence or absence of disease. THIS TEST WAS PERFORMED AT: [facility] [address] [place] [phone] KAY CHIRINOS MD Therapeutic Phlebotomy Reviewed date:02/17/2025 11:13:42 AM Interpretation: Performing Lab:[facility], [address] [place] [address] Notes/Report: THER/HGB 14.6 14.0-18.0 g/dL THER/HCT TNP 42.0-52.0 % Therapeutic Phlebotomy Phlebotomy Performed 500 mls drawn on 02/16/25. Please note that a copy of this report has been sent to the Primary Care Physician, the ordering physician and any physician designated by patient request. US abdomen comp w elastograp hy (Not yet reviewed by provider) Interpretation: Performing Lab: Notes/Report: [facility] [address] [place] [address] Ultrasound Report Signed Patient: Jose Canas MR#: [id number] : 1955 Acct:[id number] Age/Sex: 69 / M ADM Date: 02/17/25 Loc: HO.US Attending Dr: Spencer Hernandez MD Ordering Physician: Spencer Hernandez MD Date of Service: 02/17/25 Procedure(s): US abdomen comp w elastography Accession Number(s): [id number] cc: Esteban Dumas [facility]-; Spencer Hernandez MD Reason for Exam: hereditary hemochromatosis EXAMINATION: US ABDOMEN COMPLETE WITH LIVER ELASTOGRAPHY HISTORY: hereditary hemochromatosis TECHNIQUE: Real-time grayscale ultrasound imaging of the abdomen was performed and images were reviewed. COMPARISON: Comparison is made with the prior examination dated 10/08/2023. FINDINGS: Liver: The right lobe of the liver measures 13.9 cm in size. The left lobe of the liver measures 8.7 cm in size. The liver demonstrates increased echotexture, consistent with steatosis. There is focal fatty sparing adjacent to the gallbladder. No focal mass or intrahepatic biliary ductal dilatation is identified. There is normal hepatopedal flow in the portal vein. Ultrasound elastography of the liver was performed with 10 separate measurements of the liver parenchyma with the patient in the supine position. Measurements were obtained approximately 2 cm below Devon's capsule and perpendicular to the capsule. The median shear wave velocity is 1.62 m/s (previously 1.62 m/s). The interquartile range/median (IQR/median) is 0.25. Gallbladder and biliary tree: The gallbladder is unremarkable, without evidence of calculi, wall thickening, or pericholecystic fluid. There is no sonographic Chi sign. The common bile duct is normal in caliber measuring 3 mm. Kidneys: The right kidney measures 10.0 cm in length. The left kidney measures 10.9 cm in length. The kidneys are unremarkable, without evidence of masses, hydronephrosis, or calculi. Pancreas: The pancreatic head, neck, and body are unremarkable. The pancreatic tail is obscured by bowel gas. Spleen: The spleen is normal in size and contour, measuring 10.8 cm in length. Abdominal aorta and inferior vena cava: The visualized portions of the abdominal aorta and inferior vena cava are normal in caliber. There is no free fluid in the abdomen. US/US abdomen comp w elastography IMPRESSION: Hepatic steatosis. The median shear wave velocity in the liver is 1.62 m/s, corresponding to a median liver stiffness of 7.8 kPa. The IQR/median value is 0.25. This is indicative of a quality data set. Findings are indicative of a low elastography value which rules out advanced chronic liver disease in asymptomatic patients. REFERENCE: Society of Radiologists in Ultrasound Liver Stiffness Thresholds (2020): LIVER STIFFNESS THRESHOLDS: *Shear wave velocity less than 1.3 m/s (Liver Stiffness equal or less than 5 kPa): High probability of being normal. *Shear wave velocity less than 1.7 m/s (Liver Stiffness less than 9 kPa): In the absence of other known clinical signs, rules out compensated advanced chronic liver disease. *Shear wave velocity between 1.7-2.1 m/s (Liver Stiffness 9-13 kPa): Suggestive of compensated advanced chronic liver disease but need further test for confirmation. *Shear wave velocity between 2.1-2.4 m/s (Liver Stiffness 13-17 kPa): Rules in compensated advanced chronic liver disease. *Shear wave velocity greater than 2.4 m/s (Liver Stiffness over 17 kPa): Suggestive of clinically significant portal hypertension. QUALITY OF DATA SET: *IQR/Median value equal or less than 0.30 implies a quality data set. *IQR/Median value over 0.30 implies a poor quality data set. SIGNIFICANT [...] liver stiffness thresholds are not well established. 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 For Referral No Information Medications Medication [...] Problem Screening for malignant neoplasm of colon (633715184) Encounter for screening for malignant neoplasm of colon (Z12.11) Active confirmed Problem History of adenomatous polyp of colon (440552612) History of adenomatous polyp of colon (Z86.010) Active confirmed Problem Hereditary hemochromatosis (07078454) Hereditary hemochromatosis (E83.110) Active confirmed Vital Signs Temperature 98.6 degrees Fahrenheit 12/22/2024 Blood pressure diastolic 01 mm Hg 12/22/2024 Height 68.75 in 12/22/2024 Blood pressure systolic 001 mm Hg 12/22/2024 Weight 221.6 lbs 12/22/2024 BMI 32.96 kg/m2 12/22/2024 Encounters Encounter Location Date Provider Diagnosis [facility] [address] [place] [phone] 12/22/2024 Spencer Hernandez Hereditary hemochromatosis E83.110 ; History of adenomatous polyp of colon Z86.010 and Encounter for screening for malignant neoplasm of colon Z12.11 [facility] [address] [place] [phone] 12/22/2024 Spencer Hernandez Assessments Encounter Date Diagnosis [...] 4 US abdomen comp w elastography 5 US abdomen comp w elastography 4 US abdomen comp w elastography 5 Future Test Test Name Order Date COLONOSCOPY 01/08/2013 COLONOSCOPY 01/13/2018 COLONOSCOPY 07/05/2022 Insurance Providers Payer Name Payer Address Payer Phone Subscriber Number Group Number Insured Name Patient Relationship to Insured Coverage Start Date Coverage End Date [facility] [address] [address] [place] [address] [id number] JOSE CANAS Self - patient is the insured 3 MEDICARE OF [place] [address] [place] [address] [phone] [id number] JOSE CANAS Self - patient is the [...] Q 3 months in approx 2017 Denies CO,DM,CVA,Lung disease,renal dise ase Hx of Chris's palsy-recovered Negative screening colonoscopy in 2022 Surgical History Surgery Date(Month/Year) Hernia surgery x 2 Vasectomy
[2025-03-04 10:23] LABS: MANUAL DIFF FLAG NO
[2025-03-04 10:30] LABS: Hematocrit 41.2 % (42.0-52.0); Hemoglobin 13.5 g/dl (14.0-18.0); Imm Gran Abs Auto 0.04 X10*3/uL (0.00-0.03); Imm Gran Pct Auto 0.4 % (0.0-0.4); Lymphocytes Absolute Auto 2.1 X10*3/uL (1.2-4.9); Mean Corpuscular HGB Conc 32.8 g/dl (31.0-36.0); Mean Corpuscular Hemoglobin 28.5 pg (27.0-33.0); Mean Corpuscular Volume 86.9 fL (80.0-98.0); NRBC Abs Auto 0.000 X10*3/uL (0.0-0.012); NRBC Pct Auto 0.0 /100WBC (0.0-0.2); Platelet Count 237 X10*3/uL (160-400); Red Blood Count 4.74 X10*6/uL (4.60-5.80); White Blood Count 9.1 X10*3/uL (4.8-10.8)
[2025-03-04 10:45] LABS: Alanine Aminotransferase 28 U/L (0-40); Albumin Level 4.4 g/dL (3.5-5.0); Alkaline Phosphatase 79 U/L (39-117); Anion Gap 11 (12-20); Aspartate Amino Transferase 29 U/L (5-37); Blood Urea Nitrogen 22 mg/dL (9-16); Calcium 9.3 mg/dL (8.4-10.2); Carbon Dioxide 28 mmol/L (22-29); Chloride 105 mmol/L (96-108); Cholesterol 137 mg/dL (<200); Estimated Glomerular Filt Rate > 60; HDL Cholesterol 51 mg/dL (>40); Potassium 4.4 mmol/L (3.3-5.1); Sodium 140 mmol/L (135-145); Total Protein 6.9 g/dL (6.5-8.0); Triglycerides 78 mg/dL (<150)
[2025-03-04 11:01] LABS: Appearance Urine Clear; Glucose Urine UA Negative (Negative); PH 5.5 (5.0-9.0); Specific Gravity - Urine 1.020 (1.005-1.025)
[2025-03-04 11:05] LABS: Ferritin 18 ng/mL (20-250)
== END 2025-03-04 06:16 | disposition home or self-care (01) ==
LOC: HO.HMGCLDS 06:15
PROVIDERS: PCP Nurse Practitioner Family; Visit Provider Nurse Practitioner Family
DX: Z12.5 Encounter for screening for malignant neoplasm of prostate (principal); E83.119 Hemochromatosis, unspecified; I10 Essential (primary) hypertension
CPT/HCPCS: 36415; 80053; 80061; 81003; 82306; 82728; 84153; 84443; 85025

== ENCOUNTER 2025-03-09 09:55 | Outpatient (AMB) | payer OTHER, SELFPAY ==
[2025-03-09 09:59] VITALS: BP 128/60; PULSE 77; RESP 16; TEMP 36.5; O2SAT 96; BMI 32.9
--- NOTE | 2025-03-09 09:59 | A.OFFPC_ITS ---
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 Accompanied by: Self / Same As Patient Allergies No Known Allergies Allergy (Verified 03/09/25 10:09) Medication List - Last Reconciled 03/09/25 by KM Chance hydrochlorothiazide 25 mg PO QAM 90 days lisinopril 10 mg PO DAILY sildenafil 50 mg PO DAILY PRN simvastatin 80 mg PO BEDTIME Tobacco use date assessed: 03/09/25 Fall risk assessment: No Falls in past year Last assessed Fall Risk: 03/09/25 Dental Screening Dental Screen Date: 03/09/25 Did you have a dental visit in the last 12 months?: Yes Did you have a dental problem in the last 6 months where you did not have access to dental care?: No Was dental information given to patient?: Patient has dentist HPI 6M Follow UP HPI Details History of Present Illness The patient is a 69-year-old male presenting for a physical examination. He reports doing quite well overall. The patient has a history of hemochromatosis and underwent a phlebotomy last week. Recent laboratory results showed a low ferritin level and slight anemia, which are noted to be reflective of the recent procedure. His recent labs also revealed an elevated fasting blood sugar. His colon cancer screening and PSA are up to date. Health Maintenance The patient is here for a physical exam. His colon screening and PSA are up to date. He denies any acute complaints. Social History Review of Systems - General: Reports doing well overall. - Constitutional: Denies fever and chill s. - Cardiovascular: Denies chest pain. - Respiratory: Denies shortness of breat h. - Gastrointestinal: Denies abdominal aurora n, blood in stool, constipation, and diarrhea. - Genitourinary: Denies any urinary issu es. - Psychiatric: Denies suicidal or homici iam ideation. Physical Exam General: Cooperative, healthy appearing, comfortable, no acute distress and well developed Orientation: Patient oriented x3 Limitations: No limitations Head: Normal to inspection Ears: Hearing grossly normal bilaterally Nose: Normal external nose present Face and sinus: Normal facial exam Eyes: Appearance normal, both eyes and all related structures Neck: Normal visual inspection and Yes full ROM Respiratory: Normal respiratory effort and able to speak in complete sentences. Clear to auscultation bilaterally Cardiovascular: Regular rate and rhythm. Normal S1 and S2 GI: Normal to inspection. Soft to palpation and nontender : testicles without masses/lesions and no hernias appreciated Skin: No rashes or lesions noted Neuro: Patient oriented x3 Extremities: Normal to inspection Results - Fasting blood sugar: Elevated. - Ferritin: Low. - Complete Blood Count: Slight anemia. Plan 1. Hyperglycemia The patient's recent lab work revealed an elevated fasting blood sugar. He was educated on the importance of diet, specifically advising him to reduce consumption of carbohydrates and sugars, and to manage portion sizes. He will follow up for repeat testing in the middle of April. 2. Hereditary Hemochromatosis The patient has a known history of hemochromatosis and underwent a therapeutic phlebotomy last week. Recent lab findings of a low ferritin and slight anemia are consistent with this recent procedure. The patient reports feeling fine, indicating good tolerance to the treatment. Discussion Notes I discussed the patient's elevated fasting blood sugar and educated him on the importance of dietary modifications, including watching carbohydrate and sugar intake as well as portion sizes. We will plan to repeat this lab test in mid- April. I also explained that the low ferritin and slight anemia seen in his labs are expected findings following his phlebotomy for hemochromatosis last week. Patient Instructions - Watch your diet, especially your intak e of carbohydrates and sugars, to help manage your blood sugar levels. - Be mindful of your portion sizes at co als. - Please have your blood sugar rechecked in the middle of April. [facility] Medical History Hx of Chris's palsy HTN (hypertension) Dyslipidemia Hemochromatosis Squamous cell carcinoma Surgical History Hx of colonoscopy (~2018) History of hernia surgery History of vasectomy Family History Father Cancer Mother HTN (hypertension) Sister No problems noted. Sister No problems noted. Daughter No problems noted. Daughter No problems noted. Daughter No problems noted. Social History Housing: House Alcohol intake: current Alcohol intake frequency: a few times a month Patient Tobacco Use Status: Never used Tobacco e-Cigarette/Vaping Use: Never Used Second Hand Smoke Exposure: No service: No Current occupational status: employed Current occupation: [employer] Current occupational exposures/hazards: No Cognitive needs: No Hearing needs: No Vision needs: No Questionnaire PHQ-9 Over the last 2 weeks, how often have you been bothered by any of the following problems? 1. Little interest or pleasure in doing things: not at all 2. Feeling down, depressed, or hopeless: not at all 3. Trouble falling or staying asleep, or sleeping too much: not at all 4. Feeling tired or having little energy: not at all 5. Poor appetite or overeating: not at all 6. Feeling bad about yourself - or that you are a failure or have let yourself or your family down: not at all 7. Trouble concentrating on things, such as reading the newspaper or watching television: not at all 8. Moving or speaking so slowly that other people could have noticed. Or the opposite - being so fidgety or restless that you have been moving around a lot more than usual: not at all 9. Thoughts that you would be better off or of hurting yourself in some way: not at all Total score: 0 Depression Screening Interpretation: Negative Depression Screening Done: Yes 77775 - PHQ-9 Billing: Patient declined-do not bill Source: Developed by Drs. Spencer Mejias, Noy Charles, Dru Willis and colleagues, with an educational ronald from [employer]. Thrive Questionnaire Date Thrive assessed: 08/23/24 I am a: Patient What is your living situation today?: I have a steady place to live Within the past 12 months, did the food you bought not last and you didn't have the money to get more?: Never true Within the past 12 months, did you worry whether your food would run out before you got money to buy more?: Never true Do you have trouble paying for medicines?: No Do you have trouble getting transportation to medical appointments?: No Do you have trouble paying your heating and electricity bill?: No Do you have trouble taking care of your child, family member or friend?: No Do you have trouble with day-to-day activities such as bathing, preparing meals, shopping, managing finances, etc.?: No Are you currently unemployed and looking for a job?: No Are you interested in more education?: No Please select the resources that you would like help with: None Currently or been in a relationship where the following occur: No concerns reported THRIVE Score: 0 ANTHONY-7 AMB Questionnaire ANTHONY-7 Date ANTHONY - 7 assessed: 03/09/25 Feeling nervous, anxious, or on edge: 0 = Not at all Not being able to stop or control worryin = Not at all Worrying too much about different things: 0 = Not at all Trouble relaxin = Not at all Being so restless that it is hard to sit still: 0 = Not at all Becoming easily annoyed or irritable: 0 = Not at all Feeling afraid as if something awful might happen: 0 = Not at all Total ANTHONY-7 score (0-4 normal; 5-9 mild; 10-14 moderate; 15-21 severe): 0 Source: Developed by Drs. Spencer Mejias, Noy Charles, Dru Willis and colleagues, with an educational ronald from [employer]. ANTHONY-7 Assessment Billing ANTHONY-7 Assessment Tool: ANTHONY-7 Assessment 72206 Physical exam (Primary Care) Vital Signs: Last Vital Signs Temp 97.7 F 03/09/25 09:59 Pulse 77 03/09/25 09:59 Resp 16 03/09/25 09:59 BP 128/60 03/09/25 09:59 Pulse Ox 96 03/09/25 09:59 BMI result Body Mass Index 32.9 Tobacco/Smoking Status: Tobacco use Status Tobacco use date assessed 03/09/25 03/09/25 10:02 Patient Tobacco Use Status Never used Tobacco 03/09/25 10:02 e-Cigarette/Vaping Use Never Used 03/09/25 10:02 PHQ-9: PHQ-9 Score PHQ-9: Total score 0 03/09/25 10:02 Depression Screening Interpretation: Negative Thrive Assessment: Date of Thrive Assessment Date Thrive assessed 08/23/24 03/09/25 10:02 Currently or been in a relationship where the following occur: No concerns reported Coding Level of Care Code Est Pt Prev Care >65y(72937) Diagnoses Elevated fasting blood sugar R73.01 Encounter for routine adult physical exam with abnormal findings Z00.01 Additional Codes ANTHONY-7 Assessment Billing - ANTHONY-7 Assessment Tool: ANTHONY-7 Assessment 65329 ([id number]) Assessment & Plan Assessment & Plan (1) Elevated fasting blood sugar: Code(s): R73.01 - Impaired fasting glucose Category: Medical (2) Encounter for routine adult physical exam with abnormal findings: Code(s): Z00.01 - Encounter for general adult medical examination with abnormal findings Category: Medical Plan . Orders: Orders Complete Blood Count Auto Diff Today R73.01 - Impaired fasting glucose Comprehensive [place]. Panel Fast Today R73.01 - Impaired fasting glucose
--- OUTSIDE RECORDS SUMMARY | 2025-03-09 11:36 | XMS_ITS | Patient Health Record ---
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 Name Role Phone ESTEBAN DUMAS Primary Care Provider Spencer Gomez [phone] Allergies No Known Allergies Results Component Value Reference Range Notes IRON PROFILE Reviewed date:05/06/2024 09:33:49 PM Interpretation: Performing Lab:[facility], [address] [place] [phone] Notes/Report: Iron 83 45-160 mcg/dL Total Iron Binding Capacity 254 228-428 mcg/dL Percent Iron Saturation 33 15-50 % Unsaturated Iron Binding 171 Ferritin Reviewed date:05/06/2024 09:33:37 PM Interpretation: Performing Lab:[facility], [address] [place] [phone] Notes/Report: Ferritin 26 20-250 ng/mL Therapeutic Phlebotomy Reviewed date:05/06/2024 09:33:20 PM Interpretation: Performing Lab:[facility], [address] [place] [phone] Notes/Report: THER/HGB 14.2 14.0-18.0 g/dL THER/HCT TNP 42.0-52.0 % Therapeutic Phlebotomy Phlebotomy Performed 500 mls drawn on 05/05/24. Please note that a copy of this report has been sent to the Primary Care Physician, the ordering physician and any physician designated by patient request. Therapeutic Phlebotomy Reviewed date:08/05/2024 12:04:49 PM Interpretation: Performing Lab:[facility] [address] [address] Notes/Report: THER/HGB 14.5 14.0-18.0 g/dL THER/HCT TNP 42.0-52.0 % Therapeutic Phlebotomy Phlebotomy Performed 500 mls drawn on 08/05/24. Please note that a copy of this report has been sent to the Primary Care Physician, the ordering physician and any physician designated by patient request. IRON PROFILE Reviewed date:11/21/2024 07:53:12 PM Interpretation: Performing Lab:[address] [phone] Notes/Report: Iron 69 45-160 mcg/dL Total Iron Binding Capacity 263 228-428 mcg/dL Percent Iron Saturation 26 15-50 % Unsaturated Iron Binding 194 Ferritin Reviewed date:11/21/2024 07:52:57 PM Interpretation: Performing Lab:[address] [address] Notes/Report: Ferritin 22 20-250 ng/mL Therapeutic Phlebotomy Reviewed date:11/21/2024 07:52:44 PM Interpretation: Performing Lab:[facility], [address] [place] [phone] Notes/Report: THER/HGB 15.5 14.0-18.0 g/dL THER/HCT TNP 42.0-52.0 % Therapeutic Phlebotomy Phlebotomy Performed 500 mls drawn on 11/16/24. Please note that a copy of this report has been sent to the Primary Care Physician, the ordering physician and any physician designated by patient request. Alpha Fetoprotein Reviewed date:02/17/2025 03:04:43 PM Interpretation: Performing Lab:[address] [address] Notes/Report: Alpha Fetoprotein 4.1 <6.1 ng/mL This test was performed using the Pam [place] chemiluminescent method. Values obtained from different assay methods cannot be used interchangeably. AFP levels, regardless of value, should not be interpreted as absolute evidence of the presence or absence of disease. THIS TEST WAS PERFORMED AT: [facility] [address] [place] [phone] KAY CHIRINOS MD Therapeutic Phlebotomy Reviewed date:02/17/2025 11:13:42 AM Interpretation: Performing Lab:[facility], [address] [place] [address] Notes/Report: THER/HGB 14.6 14.0-18.0 g/dL THER/HCT TNP 42.0-52.0 % Therapeutic Phlebotomy Phlebotomy Performed 500 mls drawn on 02/16/25. Please note that a copy of this report has been sent to the Primary Care Physician, the ordering physician and any physician designated by patient request. US abdomen comp w elastograp hy (Not yet reviewed by provider) Interpretation: Performing Lab: Notes/Report: [facility] [address] [place] [address] Ultrasound Report Signed Patient: Jose Canas MR#: [id number] : 1955 Acct:[id number] Age/Sex: 69 / M ADM Date: 02/17/25 Loc: HO.US Attending Dr: Spencer Hernandez MD Ordering Physician: Spencer Hernandez MD Date of Service: 02/17/25 Procedure(s): US abdomen comp w elastography Accession Number(s): [id number] cc: Esteban Dumas [facility]-; Spencer Hernandez MD Reason for Exam: hereditary [...] in OV> 02/17/2554 DD/ 2 TD/TT: 02/17/25941 Medical Records Supervisor: Reason For Referral No Information Medications Medication [...] Problem Screening for malignant neoplasm of colon ([id number]) Encounter for screening for malignant neoplasm of colon (Z12.11) Active confirmed Problem History of adenomatous polyp of colon (047529827) History of adenomatous polyp of colon (Z86.010) Active confirmed Problem Hereditary hemochromatosis (64332359) Hereditary hemochromatosis (E83.110) Active confirmed Vital Signs Temperature 98.6 degrees Fahrenheit 12/22/2024 Blood pressure diastolic 01 mm Hg 12/22/2024 Height 68.75 in 12/22/2024 Blood pressure systolic 001 mm Hg 12/22/2024 Weight 221.6 lbs 12/22/2024 BMI 32.96 kg/m2 12/22/2024 Encounters Encounter Location Date Provider Diagnosis [facility] [address] [place] [phone] 12/22/2024 Spencer Hernandez Hereditary hemochromatosis E83.110 ; History of adenomatous polyp of colon Z86.010 and Encounter for screening for malignant neoplasm of colon Z12.11 [facility] [address] [place] [phone] 12/22/2024 Spencer Hernandez Assessments Encounter Date Diagnosis [...] Insured Coverage Start Date Coverage End Date [facility] [address] [address] [place] [address] [id number] JOSE CANAS Self - patient is the insured 3 MEDICARE OF [place] [address] [place] [address] [phone] [id number] JOSE CANAS Self - patient is the [...] Q 3 months in approx 2017 Denies MO,DM,CVA,Lung disease,renal dise ase Hx of Chris's palsy-recovered Negative screening colonoscopy in 2022 Surgical History Surgery Date(Month/Year) Hernia surgery x 2 Vasectomy
== END 2025-03-09 10:34 | disposition home or self-care (01) ==
LOC: HO.HMCC 09:56
PROVIDERS: PCP Nurse Practitioner Family; Visit Provider Nurse Practitioner Family
DX: R73.01 Impaired fasting glucose (principal); Z00.01 Encounter for general adult medical examination with abnormal findings

== ENCOUNTER → 2025-03-09 09:55 | Outpatient (BNVA) | payer OTHER, SELFPAY | PROVIDERS: PCP Nurse Practitioner Family; Visit Provider Nurse Practitioner Family | DX: Z00.01 Encounter for general adult medical examination with abnormal findings (principal); E83.110 Hereditary hemochromatosis; R73.01 Impaired fasting glucose | CPT/HCPCS: 96127 ==